=== PATIENT | female | born 1950 | race Caucasian/White ===

== ENCOUNTER 2021-07-22 08:10 | Outpatient (REF) | payer BC, SELFPAY ==
[2021-07-22 11:52] LABS: Appearance Urine CLEAR; Color Urine YELLOW; Glucose Urine UA NEG (NEG); Leukocyte Esterase Urine NEG (NEG); Nitrite Urine NEG (NEG); Urine Blood NEG (NEG); Urine Ketones NEG (NEG); Urine Protein NEG (NEG-TRACE)
[2021-07-22 12:15] LABS: TSH reflex Free T4 2.13 uIU/mL (0.32-4.0); Vitamin D 25-OH Total 43.7 ng/mL (>30)
[2021-07-22 12:29] LABS: Alanine Aminotransferase 18 U/L (0-31); Albumin Level 4.5 g/dL (3.5-5.0); Alkaline Phosphatase 57 U/L (39-117); Anion Gap 13 (12-20); Aspartate Amino Transferase 21 U/L (5-31); Bilirubin Total 0.5 mg/dL (0.0-1.0); Blood Urea Nitrogen 15 mg/dL (9-16); Calcium 10.6 mg/dL (8.4-10.2); Carbon Dioxide 27 mmol/L (22-29); Chloride 106 mmol/L (96-108); Cholesterol 267 mg/dL; Estimated Glomerular Filt Rate > 60; Glucose Fasting 94 mg/dL (60-99); HDL Cholesterol 61 mg/dL; LDL Cholesterol Calculated 182 mg/dl; Potassium 5.4 mmol/L (3.3-5.1); Sodium 141 mmol/L (135-145); Total Protein 7.8 g/dL (6.5-8.0); Triglycerides 123 mg/dL
== END 2021-07-22 08:11 | disposition home or self-care (01) ==
LOC: HO.HMGCLDS 08:10
PROVIDERS: PCP Nurse Practitioner Family; Visit Provider Nurse Practitioner Family
DX: M81.0 Age-related osteoporosis without current pathological fracture (principal)
CPT/HCPCS: 36415; 80053; 80061; 81003; 82306; 84443

== ENCOUNTER 2021-07-24 08:53 | Outpatient (REF) | payer BC, SELFPAY ==
--- NOTE | ~2021-07-24 | MM_ITS ---
EXAMINATION: BONE DENSITOMETRY CLINICAL INDICATION: Age-related osteoporosis without current pathological fracture. COMPARISON: This is the patient's baseline examination. TECHNIQUE: Using a OpVista DXA System (software version: 13.1) manufactured by [employer], dual-energy x-ray absorptiometry was performed of the lumbar spine and left hip. The images are of good technical quality. Summary results are attached. FINDINGS: AP SPINE L1-L3 (excluding L4): The data of L1-L4 has been changed to exclude the L4 vertebral body, because degenerative sclerosis at this level may cause overestimation of lumbar spine density. BMD 1.109 g/cm2, Z-score 1.0, T-score -0.5, normal. LEFT FEMUR, NECK: BMD 0.729 g/cm2, Z-score -0.5, T-score -2.2, osteopenia. LEFT FEMUR, TOTAL: BMD 0.803 g/cm2, Z-score -0.2, T-score -1.6, osteopenia. IDENTIFIED RISK FACTORS: Early menopause, secondary osteoporosis, osteoporosis, history of fracture (adult). HISTORY OF FRACTURE: Other. MEDICATIONS: Vitamin D, bisphosphonate. MM/XR DEXA axial skeleton IMPRESSION: 1. DIAGNOSIS: Osteopenia based on the lowest T-score value of -2.2 in the femoral neck applying World Health Organization criteria. 2. 10-YEAR FRACTURE RISK PREDICTION, FRAX: Major osteoporotic fracture (clinical spine, forearm, hip or shoulder) 20.5%. Hip fracture 4.9%. 3. Treatment Recommendations: NOF guidelines recommend consideration for treatment in postmenopausal women and men age 50 and older presenting with the following: -A hip or vertebral (clinical or morphometric) fracture. -T-score less than or equal to -2.5 at the femoral neck or spine after appropriate evaluation to exclude secondary causes. -Low bone mass at the hip or spine and a 10-year fracture probability by FRAX of greater than or equal to 3% for hip fracture or greater than or equal to 20% for major osteoporotic fracture based on the [place] adapted WHO algorithm. 4. Other Recommendations: All treatment decisions require clinical judgment and consideration of individual patient factors, including patient preferences, comorbidities, previous drug use, risk factors not captured in the FRAX model (e.g. frailty, falls, vitamin D deficiency, increased bone turnover, interval significant decline in bone density) and possible under or overestimation of fracture risk by FRAX. Additional medical evaluation for secondary cause of low bone mineral density may be appropriate. FUTURE SCAN RECOMMENDATION: People with diagnosed cases of osteoporosis or at high risk for fracture should have regular bone mineral density tests. For patients eligible for Medicare, routine testing is allowed once every 2 years. The testing frequency can be increased to one year for patients who have rapidly progressing disease, those who are receiving or discontinuing medical therapy to restore bone mass, or have additional risk factors.
== END 2021-07-24 08:54 | disposition home or self-care (01) ==
LOC: HO.MAMMO 08:53
PROVIDERS: Visit Provider Nurse Practitioner Family
DX: Z13.820 Encounter for screening for osteoporosis (principal); M81.0 Age-related osteoporosis without current pathological fracture; Z78.0 Asymptomatic menopausal state
CPT/HCPCS: 77080

== ENCOUNTER 2021-07-29 12:51 | Outpatient (REF) | payer BC, SELFPAY ==
[2021-07-29 14:09] LABS: Alanine Aminotransferase 21 U/L (0-31); Albumin Level 4.3 g/dL (3.5-5.0); Alkaline Phosphatase 61 U/L (39-117); Anion Gap 11 (12-20); Aspartate Amino Transferase 22 U/L (5-31); Bilirubin Total 0.3 mg/dL (0.0-1.0); Blood Urea Nitrogen 13 mg/dL (9-16); Calcium 10.1 mg/dL (8.4-10.2); Carbon Dioxide 28 mmol/L (22-29); Chloride 106 mmol/L (96-108); Cholesterol 249 mg/dL; Estimated Glomerular Filt Rate > 60; Glucose Fasting 105 mg/dL (60-99); HDL Cholesterol 56 mg/dL; LDL Cholesterol Calculated 168 mg/dl; Potassium 4.9 mmol/L (3.3-5.1); Sodium 140 mmol/L (135-145); Total Protein 7.6 g/dL (6.5-8.0); Triglycerides 129 mg/dL
== END 2021-07-29 12:52 | disposition home or self-care (01) ==
LOC: HO.HMGCLDS 12:51
PROVIDERS: Visit Provider Nurse Practitioner Family
DX: E78.5 Hyperlipidemia, unspecified (principal)
CPT/HCPCS: 36415; 80053; 80061

== ENCOUNTER 2021-09-23 07:49 | Outpatient (REF) | payer BC, SELFPAY ==
[2021-09-23 12:07] LABS: Alanine Aminotransferase 14 U/L (0-31); Albumin Level 4.4 g/dL (3.5-5.0); Alkaline Phosphatase 58 U/L (39-117); Anion Gap 12 (12-20); Aspartate Amino Transferase 20 U/L (5-31); Bilirubin Total 0.5 mg/dL (0.0-1.0); Blood Urea Nitrogen 14 mg/dL (9-16); Calcium 9.5 mg/dL (8.4-10.2); Carbon Dioxide 24 mmol/L (22-29); Chloride 108 mmol/L (96-108); Cholesterol 158 mg/dL; Estimated Glomerular Filt Rate > 60; Glucose Random 105 mg/dL (60-115); HDL Cholesterol 62 mg/dL; LDL Cholesterol Calculated 76 mg/dl; Potassium 4.2 mmol/L (3.3-5.1); Sodium 140 mmol/L (135-145); Total Protein 7.5 g/dL (6.5-8.0); Triglycerides 104 mg/dL
== END 2021-09-23 07:50 | disposition home or self-care (01) ==
LOC: HO.HMGCLDS 07:49
PROVIDERS: PCP Nurse Practitioner Family; Visit Provider Nurse Practitioner Family
DX: E78.5 Hyperlipidemia, unspecified (principal)
CPT/HCPCS: 36415; 80053; 80061

== ENCOUNTER 2021-11-28 13:13 | Outpatient (REF) | payer BC, SELFPAY ==
[2021-11-28 13:22] LABS: Appearance Urine Cloudy; Color Urine Dark Yellow; Glucose Urine UA Negative (Negative); Leukocyte Esterase Urine Large (3+) (Negative); Nitrite Urine Positive (Negative); PH 5.5 (5.0-9.0); Specific Gravity - Urine <= 1.005 (1.005-1.025); UMIC TRIGGER UACC YES; Urine Blood Large (3+) (Negative); Urine Ketones Negative (Negative); Urine Protein 30 (1+) mg/dL (Neg-Trace)
[2021-11-28 14:03] LABS: Hyaline Casts Urine 0-2 /LPF (0-2); Squamous Epithelial Cell Urine 0-2 /HPF (0-2); UACC Culture Trigger YES; WBC Urine >50 /HPF (0-5)
[2021-11-28 14:04] LABS: Bacteria Urine Trace (None Seen)
== END 2021-11-28 13:14 | disposition home or self-care (01) ==
LOC: HO.LNP 13:13
PROVIDERS: Visit Provider Physician Assistant Medical
DX: R30.0 Dysuria (principal)
CPT/HCPCS: 81001; 87086

== ENCOUNTER 2021-12-31 12:44 | Outpatient (REF) | payer BC, SELFPAY ==
[2021-12-31 13:50] LABS: MANUAL DIFF FLAG NO
[2021-12-31 13:58] LABS: Basophils Absolute Auto 0.1 X10*3/uL (0.0-0.2); Basophils Percent Auto 1.5 % (0-2); Eosinophils Absolute Auto 0.3 X10*3/uL (0.0-0.4); Eosinophils Percent Auto 4.1 % (0-4); Hematocrit 41.3 % (37.0-47.0); Hemoglobin 13.7 g/dl (12.0-16.0); Imm Gran Abs Auto 0.03 X10*3/uL (0.00-0.03); Imm Gran Pct Auto 0.4 % (0.0-0.4); Lymphocytes Absolute Auto 2.1 X10*3/uL (1.2-4.9); Lymphocytes Percent Auto 26.6 % (20-40); Mean Corpuscular HGB Conc 33.2 g/dl (31.0-35.0); Mean Corpuscular Hemoglobin 30.5 pg (27.0-33.0); Mean Platelet Volume 10.6 fL (9.4-12.3); Monocytes Absolute Auto 0.5 X10*3/uL (0.1-1.2); Monocytes Percent Auto 6.4 % (2-11); Neutrophils Absolute Auto 4.8 x10*3/uL (2.0-8.3); Platelet Count 287 X10*3/uL (160-400); Red Blood Count 4.49 X10*6/uL (4.20-5.50); Red Cell Distribution Width 13.1 % (11.0-16.0); White Blood Count 7.9 X10*3/uL (4.8-10.8)
[2021-12-31 14:04] LABS: Appearance Urine Clear; Color Urine Yellow; Glucose Urine UA Negative (Negative); Leukocyte Esterase Urine Trace (Negative); Nitrite Urine Negative (Negative); PH 5.5 (5.0-9.0); Specific Gravity - Urine <= 1.005 (1.005-1.025); UMIC TRIGGER UACC YES; Urine Blood Negative (Negative); Urine Ketones Negative (Negative); Urine Protein Negative (Neg-Trace)
[2021-12-31 14:14] LABS: Alanine Aminotransferase 24 U/L (0-31); Albumin Level 4.6 g/dL (3.5-5.0); Alkaline Phosphatase 68 U/L (39-117); Anion Gap 15 (12-20); Aspartate Amino Transferase 25 U/L (5-31); Blood Urea Nitrogen 11 mg/dL (9-16); Calcium 10.3 mg/dL (8.4-10.2); Carbon Dioxide 27 mmol/L (22-29); Chloride 106 mmol/L (96-108); Estimated Glomerular Filt Rate > 60; Glucose Random 96 mg/dL (60-115); Sodium 143 mmol/L (135-145); Total Protein 7.9 g/dL (6.5-8.0)
[2021-12-31 14:29] LABS: Bilirubin Total 0.5 mg/dL (0.0-1.0)
[2021-12-31 14:38] LABS: Bacteria Urine None Seen (None Seen); Hyaline Casts Urine 0-2 /LPF (0-2); RBC Urine 0-2 /HPF (0-2); Squamous Epithelial Cell Urine 0-2 /HPF (0-2); WBC Urine 0-5 /HPF (0-5)
== END 2021-12-31 12:45 | disposition home or self-care (01) ==
LOC: HO.HMGCLDS 12:44
PROVIDERS: PCP Nurse Practitioner Family; Visit Provider Nurse Practitioner Family
DX: R00.2 Palpitations (principal); D35.00 Benign neoplasm of unspecified adrenal gland
CPT/HCPCS: 36415; 80053; 81001; 81003; 84443; 85025

== ENCOUNTER → 2022-01-28 09:13 | Outpatient (REF) | payer BC, SELFPAY ==
--- NOTE | 2022-01-28 09:17 | HM_ITS ---
Conclusion: 1. Patient was monitored for total period of 3 days 2. Baseline was normal sinus rhythm with average heart rate of 85 beats per minute 3. No significant pauses or bradycardia noted 4. Occasional PVCs noted 5. No patient reported events MTDD
--- NOTE | 2022-01-28 09:17 | CA_ITS ---
Transthoracic Echocardiogram Patient (Last, First, Middle): Rocio Roland A Gender: Female Date of : 1950 Age: 71 Procedure Date: 01/28/2022 Procedure Type: Transthoracic Echocardiogram Location: OP Height: 147.32 cm Weight: 65.77 kg BSA: 1.59 m2 Heart Rate: bpm BP: 152 / 86 mmHg Licensed Dispensing Optician: WINSTON Referring MD: Levar Pritchard [facility]- Cotton Ginner Helper: Humble Abreu MD Symptoms: R00.2 - Palpitations Study Quality: Technically Difficult ECG Rhythm: Sinus Conclusions: - 1. Normal LV systolic function with grade 1 diastolic dysfunction 2. Normal cardiac valvular Doppler 3. No gross pericardial effusion Findings Left Ventricle Normal left ventricular size, thickness, and systolic function. The visually estimated ejection fraction is between 60-65%. Regional wall motion abnormalities can not be excluded due to suboptimal endocardial definition. Spectral Doppler is indicative of an impaired relaxation filling pattern. E/E prime ratio is <8, consistent with normal filling pressures. Evidence suggests grade I (mild) diastolic dysfunction. Peak GLS is -18.3%, within normal limits. Right Ventricle Normal right ventricular cavity size. Atria The left atrium is normal in size. There is no evidence of interatrial shunt. The right atrium was not well visualized. Aortic Valve The aortic valve structure and function is likely normal. There is no aortic valve stenosis. There is no aortic valve regurgitation. Mitral Valve Normal mitral valve structure and function. There is trace mitral valve regurgitation. There is no mitral valve stenosis. Pulmonic Valve The pulmonic valve was not well visualized. Tricuspid Valve Likely normal tricuspid valve structure and function. Tricuspid regurgitation envelope is inadequate for calculation of right ventricular systolic pressure. Normal right atrial pressure. Great Vessels All visible segments of the aorta are normal in size. The pulmonary artery was not well visualized. Small plaque is seen in the sino tubular ridge. Venous The inferior vena cava is normal in size and collapses greater than 50% with inspiration. Pericardium/Pleural There is no evidence of pericardial effusion. Measurements 2D Linear Measurements IVSd: 0.91 0.6-0.9/0.6-1.0 cm LVIDd: 4.01 3.9-5.3/4.2-5.9 cm LVIDd Index: 2.52 2.4-3.2/2.2-3.1 cm/m2 LVIDs: 2.19 2.0-3.6 cm LVPWd: 1.01 0.7-1.1 cm LA Diam: 3.10 2.7-3.8/3.0-4.0 cm LAIDs Index: 1.95 1.5-2.3 cm/m2 LV Mass: 149.59 67-162/88-224 g LV Mass Index: 94.08 43-95/49-115 g/m2 LVOT Diam: 2.00 3.0+(-)1.3 cm 2D Systolic Function EF 4C: 66.70 >55% EF 2C: 63.80 >55% EF BiP: 64.30 >55% Mitral Valve MV Pk E: 0.61 MV PK A: 0.70 MV Decel Time: 187.00 E/A: 0.90 E'Lateral: 7.94 E'Medial: 6.42 E/E' Med: 9.50 E/E' Lat: 7.70 PHT: 55.00 MVA PHT: 4.00 Decel Freestone: 3.27 Aortic Valve AoV Pk Haim: 1.07 AoV Mn Haim: 0.80 AoV VTI: 0.26 AoV Pk Grad: 5.00 Aov Mn Grad: 3.00 MARANDA Cont.VTI: 2.08 LVOT LVOT Pk Haim: 0.74 LVOT Mn Haim: 0.49 LVOT VTI: 0.17 LVOT Pk Grad: 2.00 LVOT Mn Grad: 1.00 LVOT Diam: 2.00 LVOT Area: 3.14 Diastolic Function MV Pk E: 0.61 MV Pk A: 0.70 E/A: 0.90 E'Medial: 6.42 E/E' Med: 9.50 E' Laterial: 7.94 E/E' Lat: 7.70 Right Ventricle TAPSE (mm): 20.80 TVS' Haim: 9.36 Tricuspid Valve RA Press: 3.00 Great Vessels Aorta Sinus of Valsalva: 3.16 2.0-3.[address] Ridge: 2.56 1.7-3.4 cm Ao Asc: 3.40 2.1-3.4 cm Updated in Other Vendor System with Status of Final Humble Abreu MD electronically signed on 01/29/2022 4:44:33 PM with status of Final
== END ==
LOC: HO.CARD 09:13
PROVIDERS: PCP Nurse Practitioner Family; Visit Provider Nurse Practitioner Family
DX: R00.2 Palpitations (principal)
CPT/HCPCS: 93242; 93306; 93356

== ENCOUNTER 2022-02-12 08:20 | Outpatient (REF) | payer BC, SELFPAY ==
[2022-02-12 11:58] LABS: Blood Urea Nitrogen 17 mg/dL (9-16); Estimated Glomerular Filt Rate > 60
== END 2022-02-12 08:21 | disposition home or self-care (01) ==
LOC: HO.HMGCLDS 08:20
PROVIDERS: PCP Nurse Practitioner Family; Visit Provider Nurse Practitioner Family
DX: D35.00 Benign neoplasm of unspecified adrenal gland (principal)
CPT/HCPCS: 36415; 82565; 84520

== ENCOUNTER 2022-02-17 08:37 | Outpatient (REF) | payer BC, SELFPAY ==
--- NOTE | ~2022-02-17 | CT_ITS ---
EXAMINATION: CT ABDOMEN WITHOUT AND WITH CONTRAST CLINICAL INFORMATION: Benign neoplasm of adrenal gland. COMPARISON: None TECHNIQUE: Contiguous axial thin section helical images of the abdomen were performed before and after the administration of oral contrast and 85 mL of Omnipaque 350 intravenous contrast. The data set was reformatted in the coronal and sagittal planes and reviewed on an independent workstation. This CT examination was performed using dose optimization techniques as appropriate, variously including the following: *Automated exposure control *Adjustment of mA and/or kV according to patient size (this includes techniques or standardized protocols for targeted exams where dose is matched to indication/reason for exam; i.e. extremities or head) *Use of iterative reconstruction technique DLP: 306 mGy-cm FINDINGS: LUNG BASES: There is focal bronchiectasis in both lung bases with atelectasis or scarring. Heart size is normal. LIVER, GALLBLADDER, AND BILIARY TREE: The liver is normal size, contour and density. No focal lesion or intrahepatic ductal dilatation seen. The liver measures 13.5 cm in length. PANCREAS: The pancreas is normal size and density. The peripancreatic fat borders are preserved. No focal lesion seen. SPLEEN: The spleen is normal size and density. Small accessory splenule is seen along the anterior margin of the spleen. ADRENAL GLANDS AND KIDNEYS: The right adrenal gland is normal. There is a small nodule in the left adrenal gland measuring 2.5 x 2.1 x 2.4 cm. On precontrast, it measures 4.4 HU. Postcontrast, it measures 68 HU and on delayed 10-minute washout image, it measures 29 HU. The absolute washout is 61% and the relative washout is 57.4% consistent with an adenoma. There is mild cortical thinning upper pole right kidney. Otherwise, both kidneys are normal size, shape and position. No enhancing renal mass or radiopaque calculi seen. There is no hydronephrosis. BOWEL LOOPS: There is scattered stool and gas seen throughout the colon without distention. The small bowel loops are normal caliber. LYMPH NODES: No abnormal size lymph nodes seen. VASCULAR: Abdominal aorta is normal caliber with mild atherosclerotic calcification. BONES: There are degenerative disc changes and spondylosis at the L4-L5 disc level. No aggressive lytic or sclerotic process seen. CT/CT abdomen wo/w IV con IMPRESSION: Left adrenal benign adenoma measuring 2.5 cm. Mild cortical thinning upper pole right kidney, likely scar. Fleischner guidelines were followed.
[2022-02-17] MEDS: iohexoL 350 MG/ML 100 ML INFUS..BTL IV (09:34)
== END 2022-02-17 08:38 | disposition home or self-care (01) ==
LOC: HO.CT 08:37
PROVIDERS: PCP Nurse Practitioner Family; Visit Provider Nurse Practitioner Family
DX: D35.00 Benign neoplasm of unspecified adrenal gland (principal)
CPT/HCPCS: 74170; Q9967

== ENCOUNTER 2022-03-12 08:54 | Outpatient (REF) | payer BC, SELFPAY ==
--- NOTE | ~2022-03-12 | MM_ITS ---
EXAMINATION: MM SCREENING DIGITAL BREAST TOMOSYNTHESIS, BILATERAL CLINICAL INFORMATION: Screening. Asymptomatic. The lifetime risk of breast cancer based on the Tyrer-Cuzick Model is 2%. COMPARISON: Mammography: 03/05/2021, 03/05/2020, 02/22/2019 ([facility]) TECHNIQUE: Digital breast tomosynthesis is performed in both the craniocaudal and mediolateral oblique views along with computer-aided detection (CAD). Synthesized 2D images are generated from the tomosynthesis. FINDINGS: The breasts are heterogeneously dense, which may obscure small masses (ACR BI-RADS breast composition Category c). There are no significant masses, abnormal calcifications, or other abnormalities. Breast tissue composition borders on average fibroglandular. There is no developing density or architectural abnormality. No significant changes from outside studies. MM/MM tomosynthesis screening BI IMPRESSION: No mammographic evidence of malignancy. ASSESSMENT: BI-RADS 1: Negative RECOMMENDATION: Routine annual mammography screening. This patient's information was entered into a reminder system with a target due date for their next mammogram.
== END 2022-03-12 08:55 | disposition home or self-care (01) ==
LOC: HO.MAMMO 08:54
PROVIDERS: PCP Nurse Practitioner Family; Visit Provider Nurse Practitioner Family
DX: Z12.31 Encounter for screening mammogram for malignant neoplasm of breast (principal)
CPT/HCPCS: 77063; 77067

== ENCOUNTER → 2022-06-02 15:30 | Outpatient (BNVA) | payer BC, SELFPAY | PROVIDERS: PCP Nurse Practitioner Family; Visit Provider Internal Medicine Endocrinology, Diabetes & Metabolism | DX: Z13.89 Encounter for screening for other disorder (principal) ==

== ENCOUNTER 2022-08-18 07:48 | Outpatient (REF) | payer MEDICARE, SELFPAY ==
[2022-08-18 11:11] LABS: MANUAL DIFF FLAG NO
[2022-08-18 11:20] LABS: Basophils Absolute Auto 0.1 X10*3/uL (0.0-0.2); Basophils Percent Auto 0.6 % (0-2); Hematocrit 43.6 % (37.0-47.0); Hemoglobin 14.2 g/dl (12.0-16.0); Imm Gran Abs Auto 0.02 X10*3/uL (0.00-0.03); Imm Gran Pct Auto 0.2 % (0.0-0.4); Lymphocytes Absolute Auto 1.2 X10*3/uL (1.2-4.9); Lymphocytes Percent Auto 14.4 % (20-40); Mean Corpuscular HGB Conc 32.6 g/dl (31.0-35.0); Mean Corpuscular Hemoglobin 29.8 pg (27.0-33.0); Mean Corpuscular Volume 91.6 fL (80.0-98.0); Mean Platelet Volume 11.1 fL (9.4-12.3); Monocytes Absolute Auto 0.2 X10*3/uL (0.1-1.2); Monocytes Percent Auto 2.6 % (2-11); Neutrophils Absolute Auto 6.6 x10*3/uL (2.0-8.3); Neutrophils Percent Auto 82.2 % (45-73); Platelet Count 253 X10*3/uL (160-400); Red Blood Count 4.76 X10*6/uL (4.20-5.50); Red Cell Distribution Width 12.8 % (11.0-16.0)
[2022-08-18 11:21] LABS: Appearance Urine Clear; Color Urine Yellow; Glucose Urine UA Negative (Negative); Leukocyte Esterase Urine Trace (Negative); Nitrite Urine Negative (Negative); Specific Gravity - Urine 1.015 (1.005-1.025); UMIC TRIGGER UACC YES; Urine Blood Negative (Negative); Urine Ketones Negative (Negative); Urine Protein Negative (Neg-Trace)
[2022-08-18 11:29] LABS: Bacteria Urine None Seen (None Seen); Hyaline Casts Urine 0-2 /LPF (0-2); RBC Urine 0-2 /HPF (0-2); Squamous Epithelial Cell Urine 0-2 /HPF (0-2); WBC Urine 0-5 /HPF (0-5)
[2022-08-18 11:35] LABS: Anion Gap 11 (12-20); Blood Urea Nitrogen 18 mg/dL (9-16); Calcium 10.7 mg/dL (8.4-10.2); Carbon Dioxide 27 mmol/L (22-29); Chloride 108 mmol/L (96-108); Estimated Glomerular Filt Rate > 60; Potassium 5.2 mmol/L (3.3-5.1); Sodium 141 mmol/L (135-145)
[2022-08-18 11:59] LABS: Alanine Aminotransferase 18 U/L (0-31); Albumin Level 4.6 g/dL (3.5-5.0); Alkaline Phosphatase 57 U/L (39-117); Anion Gap 11 (12-20); Aspartate Amino Transferase 20 U/L (5-31); Bilirubin Total 0.7 mg/dL (0.0-1.0); Blood Urea Nitrogen 17 mg/dL (9-16); Calcium 11.1 mg/dL (8.4-10.2); Carbon Dioxide 27 mmol/L (22-29); Chloride 108 mmol/L (96-108); Cholesterol 164 mg/dL; Estimated Glomerular Filt Rate > 60; Glucose Fasting 109 mg/dL (60-99); HDL Cholesterol 65 mg/dL; LDL Cholesterol Calculated 86 mg/dl; Sodium 141 mmol/L (135-145); Triglycerides 67 mg/dL
[2022-08-18 12:01] LABS: TSH reflex Free T4 0.93 uIU/mL (0.32-4.0)
[2022-08-18 12:31] LABS: Cortisol Random 1.1 ug/dL
[2022-08-20 11:03] LABS: DHEA Sulfate 3 mcg/dL (4-157)
[2022-08-31 20:04] LABS: Dexamethasone 568 ng/dL
[2022-09-02 17:33] LABS: Renin 3.31 ng/mL/h (0.25-5.82)
== END 2022-08-18 07:49 | disposition home or self-care (01) ==
LOC: HO.HMGCLDS 07:48
PROVIDERS: Absent Provider Internal Medicine Endocrinology, Diabetes & Metabolism; PCP Nurse Practitioner Family; Referring Provider Internal Medicine Nephrology; Visit Provider Nurse Practitioner Family
DX: D35.00 Benign neoplasm of unspecified adrenal gland (principal); I10 Essential (primary) hypertension; Z79.899 Other long term (current) drug therapy
CPT/HCPCS: 36415; 80051; 80053; 80061; 80299; 81001; 82088; 82310; 82533; 82565; 82627; 83835; 84244; 84443; 84520; 85025

== ENCOUNTER 2022-08-19 07:58 | Outpatient (REF) | payer MEDICARE, SELFPAY ==
[2022-08-19 11:39] LABS: Appearance Urine Clear; Color Urine Yellow; Glucose Urine UA Negative (Negative); Leukocyte Esterase Urine Negative (Negative); Nitrite Urine Negative (Negative); PH 5.5 (5.0-9.0); Specific Gravity - Urine <= 1.005 (1.005-1.025); Urine Blood Negative (Negative); Urine Ketones Negative (Negative); Urine Protein Negative (Neg-Trace)
[2022-08-19 12:14] LABS: Anion Gap 12 (12-20); Carbon Dioxide 26 mmol/L (22-29); Chloride 106 mmol/L (96-108); Potassium 3.5 mmol/L (3.3-5.1); Sodium 140 mmol/L (135-145)
[2022-08-19 12:37] LABS: Vitamin D 25-OH Total 51.3 ng/mL (>30)
[2022-08-23 14:23] LABS: PTHI 45 pg/mL (16-77)
[2022-08-24 10:44] LABS: Calcium, Ionized 5.1 mg/dL (4.7-5.5)
== END 2022-08-19 07:59 | disposition home or self-care (01) ==
LOC: HO.HMGCLDS 07:58
PROVIDERS: PCP Nurse Practitioner Family; Visit Provider Nurse Practitioner Family
DX: E83.52 Hypercalcemia (principal); I10 Essential (primary) hypertension; E87.5 Hyperkalemia
CPT/HCPCS: 36415; 80051; 81003; 82306; 82330; 83970

== ENCOUNTER 2022-08-23 07:04 | Outpatient (REF) | payer MEDICARE, SELFPAY ==
[2022-08-28 12:07] LABS: Metanephrine, Free <25 pg/mL (<=57); Normetanephrines, Free 168 pg/mL (<=148); Total Metanephrine, Free 168 pg/mL (<=205)
== END 2022-08-23 07:05 | disposition home or self-care (01) ==
LOC: HO.LAB 07:04
PROVIDERS: PCP Nurse Practitioner Family; Visit Provider Internal Medicine Endocrinology, Diabetes & Metabolism
DX: D35.00 Benign neoplasm of unspecified adrenal gland (principal)
CPT/HCPCS: 36415; 83835

== ENCOUNTER 2022-09-07 08:01 | Outpatient (REF) | payer MEDICARE, SELFPAY ==
[2022-09-07 12:00] LABS: Total Volume 24 Hour Urine 1825 mL
[2022-09-07 12:41] LABS: Creatinine, 24Hr Urine 0.7 G/Day (1.0-2.0); Creatinine, mg/dL 39.16
[2022-09-13 11:30] LABS: Metanephrine, Free 24U 38 mcg/24 h (90-315); Normetanephrine, Free 24U 254 mcg/24 h (122-676); Total Metanephrine, Free 24U 292 mcg/24 h (224-832); Total Volume 24U 1825 mL
== END 2022-09-07 08:02 | disposition home or self-care (01) ==
LOC: HO.HMGCLNP 08:01
PROVIDERS: PCP Nurse Practitioner Family; Visit Provider Internal Medicine Endocrinology, Diabetes & Metabolism
DX: D35.00 Benign neoplasm of unspecified adrenal gland (principal)
CPT/HCPCS: 82570; 83835

== ENCOUNTER 2022-10-05 08:50 | Outpatient (AMB) | payer BC, SELFPAY ==
[2022-10-05 09:02] VITALS: BP 128/80; PULSE 88; O2SAT 97; BMI 29.8
--- NOTE | 2022-10-05 09:02 | A.OFFVIS_ITS ---
Intake Vital Signs 10/05/22 09:02 Height 4 ft 11 in Weight 147 lb 11.355 oz BMI 29.8 BP 128/80 Blood Pressure Location Lt brachial Position Sitting Pulse 88 Pulse Source Pulse Oximeter Pulse Oximetry (%) 97 Oxygen Delivery Method Room Air Intake Visit Reasons: F/Up Adrenal Adenoma Intake Note: Pt presents to the office today for a follow up adrenal adenoma. Allergies ciprofloxacin [From CIPRO] Allergy (Intermediate, Verified 10/05/22 09:04) JOINT PAIN codeine [CODEINE] Allergy (Mild, Verified 10/05/22 09:04) LOOPY Penicillins Allergy (Mild, Verified 10/05/22 09:04) RASH penicillin G Allergy (Unknown, Verified 10/05/22 09:04) Unknown Medication List - Last Reconciled 10/05/22 by Pete Chandler MD cholecalciferol (vitamin D3) 50 mcg PO DAILY 90 days famotidine (Pepcid) 40 mg PO DAILY fluticasone propionate 50 mcg/actuation (Flonase Allergy Relief) 1 spray intranasal DAILY PRN ibandronate 150 mg PO .Q month 90 days loratadine (Claritin) 10 mg PO DAILY losartan 25 mg PO DAILY rosuvastatin 10 mg PO DAILY 90 days HPI HPI Comments History of Present Illness Details 72 YO F with who is seen in consultation at the request of PCP for adrenal incidentaloma. Had CT abdomen/pelvis 02/17/22 for which revealed ADRENAL GLANDS AND KIDNEYS: The right adrenal gland is normal. There is a small nodule in the left adrenal gland measuring 2.5 x 2.1 x 2.4 cm. On precontrast, it measures 4.4 HU. Postcontrast, it measures 68 HU and on delayed 10-minute washout image, it measures 29 HU. The absolute washout is 61% and the relative washout is 57.4% consistent with an adenoma. There is mild cortical thinning upper pole right kidney. Otherwise, both kidneys are normal size, shape and position. No enhancing renal mass or radiopaque calculi seen. There is no hydronephrosis. BOWEL LOOPS: There is scattered stool and gas seen throughout the colon without distention. The small bowel loops are normal caliber.? LYMPH NODES: No abnormal size lymph nodes seen. VASCULAR: Abdominal aorta is normal caliber with mild atherosclerotic calcification. BONES: There are degenerative disc changes and spondylosis at the L4-L5 disc level. No aggressive lytic or sclerotic process seen.? CT/CT abdomen wo/w IV con IMPRESSION: Left adrenal benign adenoma measuring 2.5 cm.. Denies history of spells with headache, flushing, diaphoresis, abdominal pain or diarrhea. Denies any weight gain, frequent infections, easy bruisability, development of violaceous striae. History of HTN, controlled on 1 agents. No history of anticoagulant use. Denies any weight loss, orthostatic symptoms, hypoglycemia. No history of malignancy or TB. Imaging: Labs: Workup showed that the adrenal mass was non secretory [facility] History (Updated 08/18/22 @ 13:44 [facility] Adrenal adenoma Surgical History (Updated 06/02/22 @ 15:37 by DARION Thurston) Hx of right knee surgery Social History Housing: House Patient Tobacco Use Status: Never used Tobacco e-Cigarette/Vaping Use: Never Used Second Hand Smoke Exposure: No service: No Current occupational status: retired Current occupational exposures/hazards: No Cognitive needs: No Hearing needs: No Vision needs: No Assessment & Plan Assessment & Plan (1) Adrenal adenoma: Code(s): D35.00 - Benign neoplasm of unspecified adrenal gland Plan: This is a 72-year-old white female with incidentally discovered left adrenal mass with CT characteristics to just a benign adenoma. It appears to be non secretory Plan is to continue to follow the patient. Coding Level of Care Code Est Pt Level 3 (75276) Diagnoses Adrenal adenoma D35.00
== END 2022-10-05 10:31 | disposition home or self-care (01) ==
PROVIDERS: PCP Nurse Practitioner Family; Visit Provider Internal Medicine Endocrinology, Diabetes & Metabolism
DX: D35.00 Benign neoplasm of unspecified adrenal gland (principal)
CPT/HCPCS: 99213

== ENCOUNTER → 2022-10-05 08:50 | Outpatient (BNVA) | payer BC, SELFPAY | PROVIDERS: Visit Provider Internal Medicine Endocrinology, Diabetes & Metabolism ==

== ENCOUNTER 2022-11-16 08:11 | Outpatient (AMB) | payer BC, SELFPAY ==
[2022-11-16 08:18] VITALS: BP 130/86; PULSE 94; O2SAT 98; BMI 29.5
--- NOTE | 2022-11-16 08:18 | A.OFFPC_ITS ---
Vital Signs 11/16/22 08:18 Height 4 ft 11 in Weight 146 lb 2 oz BMI 29.5 BP 130/86 Blood Pressure Location Rt brachial Position Sitting Pulse 94 Pulse Source Pulse Oximeter Pulse Oximetry (%) 98 Oxygen Delivery Method Room Air Intake Visit Reasons: 6m follow up Allergies ciprofloxacin [From CIPRO] Allergy (Intermediate, Verified 11/16/22 08:30) JOINT PAIN codeine [CODEINE] Allergy (Mild, Verified 11/16/22 08:30) LOOPY Penicillins Allergy (Mild, Verified 11/16/22 08:30) RASH penicillin G Allergy (Unknown, Verified 11/16/22 08:30) Unknown Medication List - Last Reconciled 11/16/22 by Levar Pritchard, PRINCIPAL DATABASE DEVELOPER- cholecalciferol (vitamin D3) 50 mcg PO DAILY 90 days famotidine (Pepcid) 40 mg PO DAILY fluticasone propionate 50 mcg/actuation (Flonase Allergy Relief) 1 spray intranasal DAILY PRN ibandronate 150 mg PO .Q month 90 days loratadine (Claritin) 10 mg PO DAILY losartan 25 mg PO DAILY rosuvastatin 10 mg PO DAILY 90 days Tobacco use date assessed: 11/16/22 Fall risk assessment: No Falls in past year Last assessed Fall Risk: 11/16/22 Dental Screening Dental Screen Date: 11/16/22 Did you have a dental visit in the last 12 months?: Yes Did you have a dental problem in the last 6 months where you did not have access to dental care?: No Was dental information given to patient?: Patient has dentist HPI 6m follow up HPI Details HTN: Blood pressure is stable, managed with losartan 25mg. Pt reports that her blood pressure at home is typically in the 110s/70s. Denies chest pain, shortness of breath, headache, dizziness, and blurred vision. Pt is following up with endo due to adrenal adenoma. She reports that she is walking 2-3 times a week. [facility] Medical History Adrenal adenoma Surgical History Hx of right knee surgery Social History Housing: House Patient Tobacco Use Status: Never used Tobacco e-Cigarette/Vaping Use: Never Used Second Hand Smoke Exposure: No service: No Current occupational status: retired Current occupational exposures/hazards: No Cognitive needs: No Hearing needs: No Vision needs: No Questionnaire Thrive Questionnaire Date Thrive assessed: 07/15/21 JAHAIRA-7 AMB Questionnaire JAHAIRA-7 Date JAHAIRA - 7 assessed: 07/15/21 Source: Developed by Drs. Pete Gomez, Yolette Beltran, Jah Tapia and colleagues, with an educational pilar from [employer]. Review of Systems Const Reports as per HPI Physical exam (Primary Care) Vital Signs: Last Vital Signs Pulse 94 11/16/22 08:18 BP 130/86 11/16/22 08:18 Pulse Ox 98 11/16/22 08:18 Oxygen Delivery Method Room Air 11/16/22 08:18 BMI result Body Mass Index 29.5 Tobacco/Smoking Status: Tobacco use Status Tobacco use date assessed 11/16/22 11/16/22 08:23 Patient Tobacco Use Status Never used Tobacco 11/16/22 08:23 e-Cigarette/Vaping Use Never Used 11/16/22 08:23 Thrive Assessment: Date of Thrive Assessment Date Thrive assessed 07/15/21 11/16/22 08:23 Const General: cooperative Orientation/consciousness: patient oriented x3 Resp Effort & Inspection: normal respiratory effort Auscultation: clear to auscultation bilaterally Cardio Rate: regular rate Rhythm: regular rhythm Heart sounds: S1 normal heart sound present and S2 normal heart sound present Neuro General: patient oriented x3 Extrem Right lower extremity: no edema Left lower extremity: no edema Psych Appearance: grossly normal Mental Status: mental status grossly normal Speech and movement: Normal speech and movement present Affect: normal affect Attitude: cooperative Thought process: Normal thought process present Thought content: Normal thought content present Insight: Good insight present (Psych) Judgement: Good judgement present (Psych) Assessment and Plan Assessment & Plan (1) HTN (hypertension): Code(s): I10 - Essential (primary) hypertension Plan: Labs ordered Plan The patient agreed to the use of a medical billing and coding instructor for this encounter. Scribed for ESTRELLA Horton by Fiona Rabago medical billing and coding instructor, on 11/16/2022 at 08:30 EST. Orders: Orders Comprehensive [place]. Panel Fast Today I10 - Essential (primary) hypertension Lipid Panel Today I10 - Essential (primary) hypertension TSH reflex Free T4 Today I10 - Essential (primary) hypertension Complete Blood Count Auto Diff Today I10 - Essential (primary) hypertension UA CC w/rflx Micro + Cult Today I10 - Essential (primary) hypertension Coding Level of Care Code Est Pt Level 3 (10730) Diagnoses HTN (hypertension) I10
== END 2022-11-16 10:05 | disposition home or self-care (01) ==
PROVIDERS: Visit Provider Nurse Practitioner Family
DX: I10 Essential (primary) hypertension (principal)
CPT/HCPCS: 99213

== ENCOUNTER 2022-12-15 08:18 | Outpatient (AMB) | payer BC, SELFPAY ==
--- NOTE | 2022-12-15 08:50 | AM.OFFWIN_ITS ---
Intake Vital Signs 12/15/22 08:55 Weight 65.317 kg BP 130/74 Blood Pressure Location Lt brachial Position Sitting Pulse 98 Pulse Source Pulse Oximeter Temp 98.1 F Temp Source Oral Pulse Oximetry (%) 98 Oxygen Delivery Method Room Air Intake Visit Reasons: [id number] Intake Note: Patient here for cough that has been present since last tuesday, lost voice. Patient Tobacco Use Status: Never used Tobacco Allergies ciprofloxacin [From CIPRO] Allergy (Intermediate, Verified 12/15/22 08:56) JOINT PAIN codeine [CODEINE] Allergy (Mild, Verified 12/15/22 08:56) LOOPY Penicillins Allergy (Mild, Verified 12/15/22 08:56) RASH penicillin G Allergy (Unknown, Verified 12/15/22 08:56) Unknown Do you need a note to return to daycare/school/sports/work: No HPI HPI Comments History of Present Illness Details 0920 This is a 72-year-old female presenting with fatigue, malaise, dry cough, loss of voice x5 days, not improving. Patient denies any sick contacts. Patient denies chest pain, shortness of breath, nausea, vomiting, abdominal pain, fevers, chills, headache, vision changes, dizziness and weakness. Physical examination benign Concerns for viral illness versus bronchitis versus laryngitis. Unlikely PE, pneumonia, ACS. No signs of acute respiratory distress Plan at this time will treat with prednisone, doxycycline. Will also given albuterol inhaler. Educated patient on diagnosis and treatment plan, answered all question, patient verbalizes understanding. At this time patient will be discharged home, advised to return with new or worsening symptoms. Educated on worrisome signs and symptoms and when to return. At this time I feel comfortable discharge home. [facility] Medical History Adrenal adenoma Surgical History Hx of right knee surgery Social History Housing: House Patient Tobacco Use Status: Never used Tobacco e-Cigarette/Vaping Use: Never Used Second Hand Smoke Exposure: No service: No Current occupational status: retired Current occupational exposures/hazards: No Cognitive needs: No Hearing needs: No Vision needs: No Review of Systems Const Details: Constitutional : No Weight loss, No Fever, No Chills, + Fatigue, + Malaise ENT/Mouth : No sore throat, No Rhinorrhea Eyes: No Eye Pain, No Swelling, No Redness Cardiovascular : No Chest Pain, No SOB, No Dyspnea on Exertion, No Orthopnea, No Edema, No Palpitations Respiratory : + Cough, No Sputum, No Wheezing Gastrointestinal : No Nausea, No Vomiting, No Diarrhea, No Constipation, No abdominal Pain, No Hematochezia, No Melena Genitourinary : No Dysuria, No Urinary Frequency, No Hematuria, Musculoskeletal : No joint pain, No Myalgias, No Joint Swelling Skin : No Skin Lesions, No rash Neuro : No Weakness, No Numbness, No Dizziness, No Headache Psych : No Anxiety/Panic, No Depression All other systems reviewed and are negative All systems reviewed & are unremarkable except as noted in HPI and below Physical Exam Vital Signs: Last Vital Signs Temp 98.1 F 12/15/22 08:55 Pulse 98 12/15/22 08:55 BP 130/74 12/15/22 08:55 Pulse Ox 98 12/15/22 08:55 Oxygen Delivery Method Room Air 12/15/22 08:55 Vital signs stable Appearance: Alert.? Oriented X3.? No acute distress.? Head: Normocephalic, atraumatic, no step-offs or deformities Eyes: Pupils equal, round and reactive to light.? Neck: Normal inspection.? Neck supple.? CVS: Normal heart rate and rhythm.? Pulses normal.? Respiratory: No respiratory distress.? Breath sounds normal.? Abdomen: Soft and nontender.? Skin: Skin warm and dry.? Normal skin color.? Normal skin turgor.? Extremities: No lower extremity edema.? No calf ttp. 5/5 strength to bilateral upper and lower extremities Neuro: Oriented X 3.? No motor deficit.? No sensory deficit. CN 2-12 intact Assessment & Plan Assessment & Plan (1) Bronchitis: Code(s): J40 - Bronchitis, not specified as acute or chronic Plan Take your medications as prescribed. If you were prescribed antibiotics today, it is important that you take your medication to their entirety, do not skip any doses, do not finish them early. Follow-up with your primary care provider this week. Return to the emergency department with new or worsening symptoms. Such as fevers, chills, chest pain, shortness of breath, nausea, vomiting, dizziness, headache, vision changes, lethargy In case of emergency call 911 Medications: New albuterol sulfate 90 mcg/actuation 2 puffs inhalation Q6H PRN 6.7 grams 0RF shortness of breath or wheezing prednisone 40 mg (2 x 20 mg) PO DAILY 10 tabs 0RF 5 days doxycycline hyclate 100 mg PO BID 14 caps 0RF 7 days Coding Level of Care Code Est Pt Level 3 (86419) Diagnoses Bronchitis J40
[2022-12-15 08:55] VITALS: BP 130/74; PULSE 98; TEMP 36.7; O2SAT 98
== END 2022-12-15 10:47 | disposition home or self-care (01) ==
PROVIDERS: PCP Nurse Practitioner Family; Visit Provider Physician Assistant
DX: J40 Bronchitis, not specified as acute or chronic (principal)
CPT/HCPCS: 99213

== ENCOUNTER 2023-03-17 08:11 | Outpatient (REF) | payer MEDICARE, SELFPAY | END 2023-03-17 08:12 | disposition home or self-care (01) | LOC: HO.MAMMO 08:11 | PROVIDERS: PCP Nurse Practitioner Family; Visit Provider Nurse Practitioner Family | DX: Z12.31 Encounter for screening mammogram for malignant neoplasm of breast (principal) | CPT/HCPCS: 77063; 77067 ==

== ENCOUNTER → 2023-03-17 08:30 | Outpatient (BNV) | payer MEDICARE, SELFPAY | PROVIDERS: PCP Nurse Practitioner Family; Visit Provider Radiology Diagnostic Radiology | DX: Z12.31 Encounter for screening mammogram for malignant neoplasm of breast (principal) | CPT/HCPCS: 77063; 77067 ==

== ENCOUNTER 2023-05-16 08:12 | Outpatient (AMB) | payer BC, SELFPAY ==
[2023-05-16 08:32] VITALS: BP 140/86; PULSE 90; O2SAT 97; BMI 29.7
--- NOTE | 2023-05-16 08:32 | MHC.PC.OV ---
Vital Signs 05/16/23 08:32 05/16/23 09:38 Height 4 ft 11 in Weight 147 lb 2 oz BMI 29.7 BP 140/86 H 130/78 Blood Pressure Location Rt brachial Rt brachial Position Sitting Sitting Pulse 90 Pulse Source Pulse Oximeter Pulse Oximetry (%) 97 Oxygen Delivery Method Room Air Intake Visit Reasons: Annual PE Intake Note: Pt is here for Annual PE Allergies ciprofloxacin [From CIPRO] Allergy (Intermediate, Verified 05/16/23 08:57) JOINT PAIN codeine [CODEINE] Allergy (Mild, Verified 05/16/23 08:57) LOOPY Penicillins Allergy (Mild, Verified 05/16/23 08:57) RASH penicillin G Allergy (Unknown, Verified 05/16/23 08:57) Unknown Medication List - Last Reconciled 05/16/23 by ESTRELLA Bwoer albuterol sulfate 90 mcg/actuation 2 puffs inhalation Q6H PRN cholecalciferol (vitamin D3) 50 mcg PO DAILY 90 days famotidine (Pepcid) 40 mg PO DAILY fluticasone propionate 50 mcg/actuation (Flonase Allergy Relief) 1 spray intranasal DAILY PRN ibandronate 150 mg PO .Q month 90 days loratadine (Claritin) 10 mg PO DAILY losartan 25 mg PO DAILY rosuvastatin 10 mg PO DAILY 90 days Tobacco use date assessed: 05/16/23 Fall risk assessment: No Falls in past year Last assessed Fall Risk: 05/16/23 Dental Screening Dental Screen Date: 05/16/23 Did you have a dental visit in the last 12 months?: Yes Did you have a dental problem in the last 6 months where you did not have access to dental care?: No Was dental information given to patient?: Patient has dentist HPI Annual PE HPI Details Pt is here for a PE. Will order labs. Cologuard is up to date. Mammo is up to date. Due for bone density in July, will order. HTN: Blood pressure is managed with losartan 25mg. Pt reports that her blood pressure at home is much more stable. Denies chest pain, shortness of breath, headache, dizziness, and blurred vision. Hx of vitamin D deficiency, will order labs. PFSH Medical History Adrenal adenoma Surgical History Hx of right knee surgery Social History Housing: House Patient Tobacco Use Status: Never used Tobacco e-Cigarette/Vaping Use: Never Used Second Hand Smoke Exposure: No service: No Current occupational status: retired Current occupational exposures/hazards: No Cognitive needs: No Hearing needs: No Vision needs: No Questionnaire PHQ-9 Over the last 2 weeks, how often have you been bothered by any of the following problems? 1. Little interest or pleasure in doing things: not at all 2. Feeling down, depressed, or hopeless: not at all 3. Trouble falling or staying asleep, or sleeping too much: several days 4. Feeling tired or having little energy: several days 5. Poor appetite or overeating: not at all 6. Feeling bad about yourself - or that you are a failure or have let yourself or your family down: not at all 7. Trouble concentrating on things, such as reading the newspaper or watching television: not at all 8. Moving or speaking so slowly that other people could have noticed. Or the opposite - being so fidgety or restless that you have been moving around a lot more than usual: not at all 9. Thoughts that you would be better off or of hurting yourself in some way: not at all Total score: 2 Depression Screening Interpretation: Negative Depression Screening Done: Yes 82576 - PHQ-9 Billing: Yes Source: Developed by Drs. Pete Gomez, Yolette Beltran, Jah Tapia and colleagues, with an educational pilar from [employer]. Thrive Questionnaire Date Thrive assessed: 05/16/23 I am a: Patient What is your living situation today?: I have a steady place to live Within the past 12 months, did the food you bought not last and you didn't have the money to get more?: Never true Within the past 12 months, did you worry whether your food would run out before you got money to buy more?: Never true Do you have trouble paying for medicines?: No Do you have trouble getting transportation to medical appointments?: No Do you have trouble paying your heating and electricity bill?: No Do you have trouble taking care of your child, family member or friend?: No Do you have trouble with day-to-day activities such as bathing, preparing meals, shopping, managing finances, etc.?: No Are you currently unemployed and looking for a job?: No Are you interested in more education?: No THRIVE Score: 0 AUDIT C Alcohol Use Questionnaire (AUDIT-C) 1. How often do you have a drink containing alcohol?: Never Total Score: 0 JAHAIRA-7 AMB Questionnaire JAHAIRA-7 Date JAHAIRA - 7 assessed: 05/16/23 Feeling nervous, anxious, or on edge: 0 = Not at all Not being able to stop or control worryin = Not at all Worrying too much about different things: 0 = Not at all Trouble relaxin = Not at all Being so restless that it is hard to sit still: 0 = Not at all Becoming easily annoyed or irritable: 0 = Not at all Feeling afraid as if something awful might happen: 0 = Not at all Total JAHAIRA-7 score (0-4 normal; 5-9 mild; 10-14 moderate; 15-21 severe): 0 Source: Developed by Drs. Pete Gomez, Yolette Beltran, Jah Tapia and colleagues, with an educational pilar from [employer]. Review of Systems Const Denies chills and Denies fever(s) Eyes Denies blurry vision ENT Denies vertigo, Denies dizziness and Denies sore throat Card Denies chest pain at rest, Denies chest pain with activity, Denies diaphoresis, Denies dyspnea and Denies dyspnea on exertion Resp Denies cough, Denies dyspnea, Denies dyspnea on exertion and Denies wheezing GI Denies abdominal pain, Denies melena, Denies hematochezia, Denies constipation, Denies diarrhea and Denies loose stools Denies hematuria Musc Denies numbness and Denies tingling Skin/Breast Denies lesions Neuro Denies vertigo, Denies dizziness, Denies numbness and Denies tingling Psych Denies anxiety, Denies depression, Denies homicidal ideation, Denies suicidal ideation and Denies other (substance abuse) Aller/Immun Denies wheezing Physical exam (Primary Care) Vital Signs: Last Vital Signs Pulse 90 05/16/23 08:32 BP 130/78 05/16/23 09:38 Pulse Ox 97 05/16/23 08:32 Oxygen Delivery Method Room Air 05/16/23 08:32 BMI result Body Mass Index 29.7 Tobacco/Smoking Status: Tobacco use Status Tobacco use date assessed 05/16/23 05/16/23 08:37 Patient Tobacco Use Status Never used Tobacco 05/16/23 08:34 e-Cigarette/Vaping Use Never Used 05/16/23 08:34 PHQ-9: PHQ-9 Score PHQ-9: Total score 2 05/16/23 09:38 Depression Screening Interpretation: Negative Thrive Assessment: Date of Thrive Assessment Date Thrive assessed 05/16/23 05/16/23 08:47 Const General: cooperative Nutritional Appearance: well nourished Orientation/consciousness: patient oriented x3 HENMT Head: Yes normal to inspection, Yes normocephalic and Yes atraumatic Ears: TM's normal bilaterally Eyes General: appearance normal, both eyes and all related structures Alignment and Position: alignment normal and position normal Neck Neck: Yes normal visual inspection and Yes no lymphadenopathy Thyroid: Thyroid normal Resp Effort & Inspection: normal respiratory effort Auscultation: clear to auscultation bilaterally Cardio Rate: regular rate Rhythm: regular rhythm Heart sounds: S1 normal heart sound present, S2 normal heart sound present and no murmurs GI Palpation (GI): Soft to palpation and nontender Auscultation: normal bowel sounds Skin Rashes: no rashes Neuro General: patient oriented x3, moves all extremities, no focal motor deficits and deep tendon reflexes 2+ bilaterally Romberg Test: Negative Psych Appearance: grossly normal Mental Status: mental status grossly normal Speech and movement: Normal speech and movement present Affect: normal affect Attitude: cooperative Thought process: Normal thought process present Thought content: Normal thought content present Insight: Good insight present (Psych) Judgement: Good judgement present (Psych) Assessment and Plan Assessment & Plan (1) Vitamin D deficiency: Code(s): E55.9 - Vitamin D deficiency, unspecified Plan: Vitamin D ordered (2) Osteoporosis: Code(s): M81.0 - Age-related osteoporosis without current pathological fracture Plan: Bone density ordered (3) HTN (hypertension): Code(s): I10 - Essential (primary) hypertension Plan: Pt will continue to monitor BP at home, though stable Plan The patient agreed to the use of a medical administrative specialist for this encounter. Scribed for ESTRELLA Horton by Fiona Rabago medical administrative specialist, on 05/16/2023 at 08:55 EST. Orders: Orders XR DEXA axial skeleton Today E55.9 - Vitamin D deficiency, unspecified, M81.0 - Age-related osteoporosis without current pathological fracture AMB EKG-In Office Today I10 - Essential (primary) hypertension Coding Level of Care Code Est Pt Prev Care >65y(68246) Diagnoses Vitamin D deficiency E55.9 Osteoporosis M81.0 HTN (hypertension) I10
[2023-05-16 09:38] VITALS: BP 130/78
== END 2023-05-16 09:41 | disposition home or self-care (01) ==
PROVIDERS: PCP Nurse Practitioner Family; Visit Provider Nurse Practitioner Family
DX: Z00.00 Encounter for general adult medical examination without abnormal findings (principal); I10 Essential (primary) hypertension; E55.9 Vitamin D deficiency, unspecified; M81.0 Age-related osteoporosis without current pathological fracture
CPT/HCPCS: 99397

== ENCOUNTER 2023-05-20 07:44 | Outpatient (REF) | payer MEDICARE, SELFPAY ==
[2023-05-20 11:22] LABS: MANUAL DIFF FLAG NO
[2023-05-20 11:24] LABS: Appearance Urine Clear; Color Urine Yellow; Glucose Urine UA Negative (Negative); Leukocyte Esterase Urine Trace (Negative); Nitrite Urine Negative (Negative); PH 5.5 (5.0-9.0); Specific Gravity - Urine 1.015 (1.005-1.025); UMIC TRIGGER UACC YES; Urine Blood Negative (Negative); Urine Ketones Negative (Negative); Urine Protein Negative (Neg-Trace)
[2023-05-20 11:35] LABS: Basophils Absolute Auto 0.1 X10*3/uL (0.0-0.2); Basophils Percent Auto 1.2 % (0-2); Eosinophils Absolute Auto 0.3 X10*3/uL (0.0-0.4); Eosinophils Percent Auto 4.9 % (0-4); Hematocrit 41.6 % (37.0-47.0); Hemoglobin 13.6 g/dl (12.0-16.0); Imm Gran Abs Auto 0.02 X10*3/uL (0.00-0.03); Imm Gran Pct Auto 0.3 % (0.0-0.4); Lymphocytes Absolute Auto 1.6 X10*3/uL (1.2-4.9); Lymphocytes Percent Auto 26.8 % (20-40); Mean Corpuscular HGB Conc 32.7 g/dl (31.0-35.0); Mean Corpuscular Volume 91.6 fL (80.0-98.0); Monocytes Absolute Auto 0.5 X10*3/uL (0.1-1.2); Monocytes Percent Auto 8.5 % (2-11); Neutrophils Absolute Auto 3.4 x10*3/uL (2.0-8.3); Neutrophils Percent Auto 58.3 % (45-73); Platelet Count 263 X10*3/uL (160-400); Red Blood Count 4.54 X10*6/uL (4.20-5.50); Red Cell Distribution Width 13.4 % (11.0-16.0); White Blood Count 5.9 X10*3/uL (4.8-10.8)
[2023-05-20 11:38] LABS: Bacteria Urine None Seen (None Seen); Hyaline Casts Urine 0-2 /LPF (0-2); RBC Urine 0-2 /HPF (0-2); Squamous Epithelial Cell Urine 0-2 /HPF (0-2); WBC Urine 0-5 /HPF (0-5)
[2023-05-20 12:13] LABS: TSH reflex Free T4 2.22 uIU/mL (0.32-4.0)
[2023-05-20 12:15] LABS: Anion Gap 10 (12-20)
[2023-05-20 12:19] LABS: Alanine Aminotransferase 19 U/L (0-31); Albumin Level 4.3 g/dL (3.5-5.0); Alkaline Phosphatase 60 U/L (39-117); Aspartate Amino Transferase 23 U/L (5-31); Bilirubin Total 0.5 mg/dL (0.0-1.0); Blood Urea Nitrogen 15 mg/dL (9-16); Calcium 9.7 mg/dL (8.4-10.2); Carbon Dioxide 27 mmol/L (22-29); Chloride 110 mmol/L (96-108); Cholesterol 160 mg/dL (<200); Estimated Glomerular Filt Rate > 60; Glucose Fasting 90 mg/dL (60-99); HDL Cholesterol 58 mg/dL (>40); LDL Cholesterol Calculated 85 mg/dL (<100); Potassium 4.1 mmol/L (3.3-5.1); Sodium 143 mmol/L (135-145); Total Protein 7.6 g/dL (6.5-8.0); Triglycerides 85 mg/dL (<150)
== END 2023-05-20 07:45 | disposition home or self-care (01) ==
LOC: HO.HMGCLDS 07:44
PROVIDERS: PCP Nurse Practitioner Family; Visit Provider Nurse Practitioner Family
DX: I10 Essential (primary) hypertension (principal)
CPT/HCPCS: 36415; 80053; 80061; 81001; 84443; 85025

== ENCOUNTER 2023-07-29 09:35 | Outpatient (REF) | payer MEDICARE, SELFPAY ==
--- NOTE | ~2023-07-29 | MM_ITS ---
EXAMINATION: BONE DENSITOMETRY CLINICAL INDICATION: Age-related osteoporosis without current pathological fracture. COMPARISON: Baseline BD dated 07/24/2021. TECHNIQUE: Using a [employer] DXA System (software version: 13.1) manufactured by [employer], dual-energy x-ray absorptiometry was performed of the lumbar spine and left hip. The images are of good technical quality. Summary results are attached. FINDINGS: LEFT FEMUR, NECK: Current: BMD 0.740 g/cm2, Z-score -0.2, T-score -2.1, osteopenia. Baseline: BMD 0.729 g/cm2. LEFT FEMUR, TOTAL: Current: BMD 0.803 g/cm2, Z-score 0.1, T-score -1.6, osteopenia, 0.0% no change from baseline (<5% change is not significant). Baseline: BMD 0.803 g/cm2. AP SPINE L1-L3 (excluding L4): The data of L1-L4 has been changed to exclude the L4 vertebral body, because degenerative sclerosis at this level may cause overestimation of lumbar spine density. Current: BMD 1.120 g/cm2, Z-score 1.3, T-score -0.4, normal, 1.0% increase from baseline (<5% change is not significant). Baseline: BMD 1.109 g/cm2. IDENTIFIED RISK FACTORS: Early menopause, secondary osteoporosis, history of fracture (adult). HISTORY OF FRACTURE: Other. MEDICATIONS: Vitamin D, bisphosphonates. MM/XR DEXA axial skeleton IMPRESSION: 1. DIAGNOSIS: Osteopenia based on the lowest T-score value of -2.1 in the femoral neck applying World Health Organization criteria. 2. 10-YEAR FRACTURE RISK PREDICTION, FRAX: Not performed in this patient on estrogen or bone building treatments. 3. Treatment Recommendations: NOF guidelines recommend consideration for treatment in postmenopausal women and men age 50 and older presenting with the following: -A hip or vertebral (clinical or morphometric) fracture. -T-score less than or equal to -2.5 at the femoral neck or spine after appropriate evaluation to exclude secondary causes. -Low bone mass at the hip or spine and a 10-year fracture probability by FRAX of greater than or equal to 3% for hip fracture or greater than or equal to 20% for major osteoporotic fracture based on the [place] adapted WHO algorithm. 4. Other Recommendations: All treatment decisions require clinical judgment and consideration of individual patient factors, including patient preferences, comorbidities, previous drug use, risk factors not captured in the FRAX model (e.g. frailty, falls, vitamin D deficiency, increased bone turnover, interval significant decline in bone density) and possible under or overestimation of fracture risk by FRAX. Additional medical evaluation for secondary cause of low bone mineral density may be appropriate. FUTURE SCAN RECOMMENDATION: People with diagnosed cases of osteoporosis or at high risk for fracture should have regular bone mineral density tests. For patients eligible for Medicare, routine testing is allowed once every 2 years. The testing frequency can be increased to one year for patients who have rapidly progressing disease, those who are receiving or discontinuing medical therapy to restore bone mass, or have additional risk factors.
== END 2023-07-29 09:36 | disposition home or self-care (01) ==
LOC: HO.MAMMO 09:35
PROVIDERS: PCP Nurse Practitioner Family; Visit Provider Nurse Practitioner Family
DX: E55.9 Vitamin D deficiency, unspecified (principal); M81.0 Age-related osteoporosis without current pathological fracture
CPT/HCPCS: 77080

== ENCOUNTER 2023-09-01 12:06 | Outpatient (AMB) | payer MEDICARE, SELFPAY ==
[2023-09-01 12:12] VITALS: BP 132/76; PULSE 82; TEMP 36.6; O2SAT 97
--- NOTE | 2023-09-01 12:12 | MHC.OFFWIV ---
Intake Vital Signs 09/01/23 12:12 Height 4 ft 11 in BP 132/76 Blood Pressure Location Rt brachial Position Sitting Pulse 82 Pulse Source Pulse Oximeter Temp 97.9 F Temp Source Temporal Artery Scan Pulse Oximetry (%) 97 Intake Visit Reasons: EP lower rt side/back pain 10 days Intake Note: pt is here for lower right side and back pain for 10 days Patient Tobacco Use Status: Never used Tobacco Allergies ciprofloxacin [From CIPRO] Allergy (Intermediate, Verified 09/01/23 12:13) JOINT PAIN codeine [CODEINE] Allergy (Mild, Verified 09/01/23 12:13) LOOPY Penicillins Allergy (Mild, Verified 09/01/23 12:13) RASH penicillin G Allergy (Unknown, Verified 09/01/23 12:13) Unknown Do you need a note to return to daycare/school/sports/work: No HPI HPI Comments History of Present Illness Details 73 y/o female patient who presents to walk in clinic with c/o Right sided lower back pain that radiates to the right lower extremity. Reports that pain started ~ 10 days. She was recently in a long distance Car ride (6 hours) with Family, and this is when she noticed the pain. Denies injury or trauma. No h/o chronic back pain. She was briefly seen at a local ED for this concern and was told Etiology of her pain was related to Muscleskeletal . Denies bladder or bowel symptoms today. She has tried Ibuprofen, heat/Ice with no relief. COUNTS INCLUDE 234 BEDS AT THE [facility] Medical History Adrenal adenoma Surgical History Hx of right knee surgery Social History Housing: House Patient Tobacco Use Status: Never used Tobacco e-Cigarette/Vaping Use: Never Used Second Hand Smoke Exposure: No service: No Current occupational status: retired Current occupational exposures/hazards: No Cognitive needs: No Hearing needs: No Vision needs: No Review of Systems Const All systems reviewed & are unremarkable except as noted in HPI and below Physical Exam Vital Signs: Last Vital Signs Temp 97.9 F 09/01/23 12:12 Pulse 82 09/01/23 12:12 BP 132/76 09/01/23 12:12 Pulse Ox 97 09/01/23 12:12 Const General: comfortable and no acute distress Nutritional Appearance: obese Orientation/consciousness: patient oriented x3 General: Yes no CVA tenderness Back/Spine/Pelvis Back: no CVA tenderness and back tenderness Thoracic/Lumbar Spine: thoraco-lumbar ROM normal, paraspinal muscle tenderness, thoraco-lumbar spasm and lumbar spinal tenderness at L4 and at L5 Sacrum: tenderness on the right Coccyx: Coccyx tenderness present on direct palpation Neuro General: patient oriented x3, gait normal and moves all extremities Psych Speech and movement: Normal speech and movement present Assessment & Plan Assessment & Plan (1) Low back pain: Code(s): M54.50 - Low back pain, unspecified Qualifiers: Chronicity: acute Back pain laterality: right Sciatica presence: with sciatica Sciatica laterality: sciatica of right side Qualified Code(s): M54.41 - Lumbago with sciatica, right side Plan: - Acetaminophen for pain relief - Ice/Hot - Encouraged routine Body Massages - Encourage low impact exercises such as swimming and short walks - Avoid prolonged Sitting - Advised PT - F/U with PCP Coding Level of Care Code Est Pt Level 3 (42791) Diagnoses Acute right-sided low back pain with right-sided sciatica M54.41 Chronicity: acute Back pain laterality: right Sciatica presence: with sciatica Sciatica laterality: sciatica of right side Time Spent (min) 15
== END 2023-09-01 12:58 | disposition home or self-care (01) ==
PROVIDERS: PCP Nurse Practitioner Family; Visit Provider Nurse Practitioner Family
DX: M54.41 Lumbago with sciatica, right side (principal)
CPT/HCPCS: 99213

== ENCOUNTER 2023-10-04 11:16 | Outpatient (AMB) | payer MEDICARE, SELFPAY ==
--- NOTE | 2023-10-04 11:24 | A.OFFPC_ITS ---
Vital Signs 10/04/23 11:27 Height 4 ft 11 in Weight 146 lb BMI 29.5 BP 126/86 Blood Pressure Location Rt brachial Position Sitting Pulse 84 Pulse Source Pulse Oximeter Pulse Oximetry (%) 98 Oxygen Delivery Method Room Air Intake Visit Reasons: Waist and back pain-skeletal Intake Note: Patient here for ED follow up Allergies ciprofloxacin [From CIPRO] Allergy (Intermediate, Verified 10/04/23 11:28) JOINT PAIN codeine [CODEINE] Allergy (Mild, Verified 10/04/23 11:28) LOOPY Penicillins Allergy (Mild, Verified 10/04/23 11:28) RASH penicillin G Allergy (Unknown, Verified 10/04/23 11:28) Unknown Tobacco use date assessed: 05/16/23 Fall risk assessment: No Falls in past year Last assessed Fall Risk: 10/04/23 Dental Screening Dental Screen Date: 05/16/23 HPI Waist and back pain-skeletal HPI Details Pt c/o lower back pain. She reports that the pain radiates to her right lateral side, to anterior abd. She was seen in the ER in [place] on 08/22 and workup was reportedly negative (missing notes). Pt was then seen in the walk-in on 08/31 with ongoing pain. It was recommended that pt use ice/heat, tylenol, and do exercises at home. Pt reports ongoing pain that is worse with turning her upper torso. Pt does not have dermatitis or signs of shingles, though this is a differential diagnosis. Will send prednisone. Recommended warm moist heat to the region. Will have pt keep in close contact with me regarding this. Denies any signs of cauda equina. [facility] Medical History Adrenal adenoma Surgical History Hx of right knee surgery Social History Housing: House Patient Tobacco Use Status: Never used Tobacco e-Cigarette/Vaping Use: Never Used Second Hand Smoke Exposure: No service: No Current occupational status: retired Current occupational exposures/hazards: No Cognitive needs: No Hearing needs: No Vision needs: No Questionnaire Thrive Questionnaire Date Thrive assessed: 05/16/23 JAHAIRA-7 AMB Questionnaire JAHAIRA-7 Date JAHAIRA - 7 assessed: 05/16/23 Source: Developed by Drs. Pete Gomez, Yolette Beltran, Jah Tapia and colleagues, with an educational pilar from [employer]. Review of Systems Const Reports as per HPI Physical exam (Primary Care) Vital Signs: Last Vital Signs Pulse 84 10/04/23 11:27 BP 126/86 10/04/23 11:27 Pulse Ox 98 10/04/23 11:27 Oxygen Delivery Method Room Air 10/04/23 11:27 BMI result Body Mass Index 29.5 Tobacco/Smoking Status: Tobacco use Status Tobacco use date assessed 05/16/23 10/04/23 11:27 Patient Tobacco Use Status Never used Tobacco 10/04/23 11:27 e-Cigarette/Vaping Use Never Used 10/04/23 11:27 Thrive Assessment: Date of Thrive Assessment Date Thrive assessed 05/16/23 10/04/23 11:27 Const General: cooperative Orientation/consciousness: patient oriented x3 Resp Effort & Inspection: normal respiratory effort Auscultation: clear to auscultation bilaterally Cardio Rate: regular rate Rhythm: regular rhythm Heart sounds: S1 normal heart sound present and S2 normal heart sound present Back/Spine/Pelvis Other: exacerbation of pain to upper lumbar region radiating anteriorly and laterally along right lat with turning upper torso side to side, no pain with bilat knee to chest raises, bilat entire LE raises, heel and toe walking, no pain with palpation, no dermatitis or signs of shingles Neuro General: patient oriented x3 Psych Appearance: grossly normal Mental Status: mental status grossly normal Speech and movement: Normal speech and movement present Affect: normal affect Attitude: cooperative Thought process: Normal thought process present Thought content: Normal thought content present Insight: Good insight present (Psych) Judgement: Good judgement present (Psych) Assessment and Plan Assessment & Plan (1) Lower back pain: Code(s): M54.50 - Low back pain, unspecified Plan: XR and prednisone. Pt will contact me with her status via portal over this week. Plan The patient agreed to the use of a medical affairs specialist for this encounter. Scribed for ESTRELLA Horton by alicia Potter scribe, on 10/04/2023 at 11:40 EST. Orders: Orders XR lumbar spine 2-3V Today M54.50 - Low back pain, unspecified Medications: New 2 prednisone 50 mg PO DAILY 6 tabs 0RF Coding Level of Care Code Est Pt Level 3 (40368) Diagnoses Lower back pain M54.50
[2023-10-04 11:27] VITALS: BP 126/86; PULSE 84; O2SAT 98; BMI 29.5
== END 2023-10-04 12:11 | disposition home or self-care (01) ==
PROVIDERS: PCP Nurse Practitioner Family; Visit Provider Nurse Practitioner Family
DX: M54.50 Low back pain, unspecified (principal)
CPT/HCPCS: 99213

== ENCOUNTER 2023-10-04 14:04 | Outpatient (REF) | payer MEDICARE, SELFPAY ==
--- NOTE | ~2023-10-04 | XR_ITS ---
EXAMINATION: XR LUMBOSACRAL SPINE CLINICAL INFORMATION: Low back pain COMPARISON: None available. TECHNIQUE: Three views of the lumbosacral spine. FINDINGS: 5 nonrib-bearing lumbar-type vertebral bodies. No acute visible fracture or dislocation. Slight levocurvature of the mid lumbar spine. Grade 1-2 anterolisthesis of L3 on L4. Multilevel degenerative changes greatest at L4-L5 with disc space narrowing, endplate sclerosis, osteophyte formation, and lower lumbar spine facet arthropathy. Vertebral bodies and spaces are otherwise maintained. Posterior elements are intact. Paraspinal soft tissues are unremarkable. Visualized bowel gas is unremarkable. XR/XR lumbar spine 2-3V IMPRESSION: 1. No acute visible fracture or dislocation. 2. Slight levocurvature of the mid lumbar spine. 3. Grade 1-2 anterolisthesis of L3 on L4. 4. Multilevel degenerative changes greatest at L4-L5.
== END 2023-10-04 14:05 | disposition home or self-care (01) ==
LOC: HO.HMGCX 14:04
PROVIDERS: PCP Nurse Practitioner Family; Visit Provider Nurse Practitioner Family
DX: M54.50 Low back pain, unspecified (principal)
CPT/HCPCS: 72100

== ENCOUNTER 2023-10-25 07:59 | Outpatient (AMB) | payer MEDICARE, SELFPAY ==
--- NOTE | 2023-10-25 07:06 | MHC.PC.OV ---
Intake Visit Reasons: review results with patient Allergies ciprofloxacin [From CIPRO] Allergy (Intermediate, Verified 10/04/23 11:28) JOINT PAIN codeine [CODEINE] Allergy (Mild, Verified 10/04/23 11:28) LOOPY Penicillins Allergy (Mild, Verified 10/04/23 11:28) RASH penicillin G Allergy (Unknown, Verified 10/04/23 11:28) Unknown Medication List - Last Reconciled 10/25/23 by AMOR Bower-ROHAN albuterol sulfate 90 mcg/actuation 2 puffs inhalation Q6H PRN cholecalciferol (vitamin D3) 50 mcg PO DAILY 90 days famotidine (Pepcid) 40 mg PO DAILY fluticasone propionate 50 mcg/actuation (Flonase Allergy Relief) 1 spray intranasal DAILY PRN ibandronate 150 mg PO .Q month 90 days loratadine (Claritin) 10 mg PO DAILY losartan 25 mg PO DAILY prednisone 50 mg PO DAILY rosuvastatin 10 mg PO DAILY 90 days Tobacco use date assessed: 05/16/23 Dental Screening Dental Screen Date: 05/16/23 HPI review results with patient HPI Details Pt had a recent XR of her lumbar spine which showed no acute visible fracture or dislocation. Slight levocurvature of the mid lumbar spine. Grade 1-2 anterolisthesis of L3 on L4. Multilevel degenerative changes greatest at L4-L5. Pt reports ongoing pain especially with sitting or standing for long periods. Will refer to PT. Denies any signs of cauda equina or radicular symptoms. Pt also reports right hip pain. Will order XR of right hip. Will send meloxicam. [facility] Medical History Adrenal adenoma Surgical History Hx of right knee surgery Social History Housing: House Patient Tobacco Use Status: Never used Tobacco e-Cigarette/Vaping Use: Never Used Second Hand Smoke Exposure: No service: No Current occupational status: retired Current occupational exposures/hazards: No Cognitive needs: No Hearing needs: No Vision needs: No Questionnaire Thrive Questionnaire Date Thrive assessed: 05/16/23 JAHAIRA-7 AMB Questionnaire JAHAIRA-7 Date JAHAIRA - 7 assessed: 05/16/23 Source: Developed by Drs. Pete Gomez, Yolette Beltran, Jah Tapia and colleagues, with an educational pilar from [employer]. Review of Systems Const Reports as per HPI Physical exam (Primary Care) Tobacco/Smoking Status: Tobacco use Status Tobacco use date assessed 05/16/23 10/25/23 07:07 Patient Tobacco Use Status Never used Tobacco 10/25/23 07:07 e-Cigarette/Vaping Use Never Used 10/25/23 07:07 Thrive Assessment: Date of Thrive Assessment Date Thrive assessed 05/16/23 10/25/23 07:07 Const General: cooperative Orientation/consciousness: patient oriented x3 Neuro General: patient oriented x3 Psych Appearance: grossly normal Mental Status: mental status grossly normal Speech and movement: Clear speech present Affect: normal affect Attitude: cooperative Thought process: Normal thought process present Thought content: Normal thought content present Insight: Good insight present (Psych) Judgement: Good judgement present (Psych) Telehealth Telehealth Telehealth Platform: Vinny Location of provider rendering services: practice address Location of patient: address on file Patient Identification confirmed using: Name, : Yes Telehealth method: video Patient verbally consented to treatment: Yes Patient verbally consented to billing insurance company: Yes Patient informed of any privacy concerns related to visit: Yes Minutes spent on Phone/Video with Pt.: 10 Assessment and Plan Assessment & Plan (1) Right hip pain: Code(s): M25.551 - Pain in right hip Plan: XR ordered (2) Lower back pain: Code(s): M54.50 - Low back pain, unspecified Plan: PT Plan The patient agreed to the use of a certified ophthalmic medical technician for this encounter. Scribed for ESTRELLA Horton by Fiona Rabago certified ophthalmic medical technician, on 10/25/2023 at 07:05 EST. Orders: Orders PT Evaluation and Treatment Today M54.50 - Low back pain, unspecified XR hip RT min 2V Today M25.551 - Pain in right hip Medications: New meloxicam 7.5 mg PO DAILY 20 tabs 0RF Coding Level of Care Code Tele Est Pt Level 3 (32601) Diagnoses Right hip pain M25.551 Lower back pain M54.50
== END 2023-10-25 09:11 | disposition home or self-care (01) ==
LOC: HO.HMGC 07:59
PROVIDERS: PCP Nurse Practitioner Family; Visit Provider Nurse Practitioner Family
DX: M25.551 Pain in right hip (principal); M54.50 Low back pain, unspecified
CPT/HCPCS: 99213

== ENCOUNTER 2023-11-03 10:39 | Outpatient (REF) | payer MEDICARE, SELFPAY ==
--- NOTE | ~2023-11-03 | XR_ITS ---
EXAMINATION: XR HIP, RIGHT CLINICAL INFORMATION: Right hip pain. COMPARISON: None available. TECHNIQUE: AP and frog-leg lateral views of the right hip. FINDINGS: Mild osteoarthritis in the right hip joint with marginal osteophytes. No cephalad joint space narrowing. Right SI joint is unremarkable. Enthesopathic spurring is present at the right anterior-superior iliac spine. Degenerative spondylosis is noted in the lower lumbar spine. Soft tissues are unremarkable. XR/XR hip RT min 2V IMPRESSION: Mild osteoarthritis in the right hip. No acute osseous findings. Electronically signed by: Hawk Chaudhari MD 11/28/2023 05:36 PM EDT
[2023-11-03 13:38] LABS: Appearance Urine Clear; Color Urine Yellow; Glucose Urine UA Negative (Negative); Leukocyte Esterase Urine Negative (Negative); Nitrite Urine Negative (Negative); Specific Gravity - Urine <= 1.005 (1.005-1.025); Urine Blood Negative (Negative); Urine Ketones Negative (Negative); Urine Protein Negative (Neg-Trace)
== END 2023-11-03 10:40 | disposition home or self-care (01) ==
LOC: HO.HMGCX 10:39
PROVIDERS: PCP Nurse Practitioner Family; Visit Provider Nurse Practitioner Family
DX: M25.551 Pain in right hip (principal); I10 Essential (primary) hypertension
CPT/HCPCS: 73502; 81003

== ENCOUNTER 2023-11-29 09:00 | Outpatient (RCR) | payer MEDICARE, SELFPAY ==
--- NOTE | 2023-11-24 09:39 | MHC.PT.EP ---
[facility] [place] Office [place] Office [place] Office [address] [phone] F: [phone] F: [phone] F: [phone] F: [phone] Physical Therapy Plan of Care Date of Evaluation: 11/24/23 Date of Surgery: n/a Diagnosis: low back pain Assessment: Patient is a 73 year old female presenting to PT with complaints of pain in her low back. Pt reports onset of pain began about 1 year ago due to insidious onset. She presents today with impairments in pain, lumbar ROM, hip strength. 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 Pt expresses parts counterman goal of reducing pain, and is motivated to work towards this in PT. Clinical presentation today is most consistent with signs and sx associated with low back pain and pt will benefit from skilled PT 2 week x 4 weeks to address the following problems and impairments noted upon evaluation: pain, lumbar ROM, hip strength. These problems limit the patient with the following functional activities: ADLs, quilting, puzzles. The prescribed treatment plan of care is medically necessary. Co-morbidities of none were identified and taken into considerations of plan of care. Pt was educated on HEP, role of PT, prognosis, POC. Frequency and Duration: The patient will be seen 2 x week x 4 weeks Short Term Goals: Pt will demonstrate centralization of sx in 2 weeks. Pt will demonstrate improved hip MMT strength by 1/3 grade in 2 weeks. Pt will demonstrate lumbar ROM in available range with no pain in 2 weeks. Installer Goals: Pt will demonstrate ability to complete ADLs with min to no pain in 4 weeks for improved functional mobility. Pt will demonstrate ability to quilt with min to no pain in 4 weeks for return to PLOF. Treatment Plan: Modalities to reduce pain, spasms and effusion. Manual therapy to restore motion and function. Therapeutic exercise to improve strength and flexibility. Neuromuscular re-education for posture and balance. Therapeutic activities to return to functional activities of daily living. Electronically signed by: Emily Covarrubias, PT, DPT, ATC Please sign and return to therapist. Thank you for your referral.
--- NOTE | 2024-01-02 11:00 | MHC.PT.DC ---
[facility] [place] Office [place] Office [place] Office [address] [facility] [phone] F: [phone] F: [phone] F: [phone] F: [phone] Physical Therapy Discharge Report Diagnosis: low back pain Date of Surgery: n/a Date of Evaluation: 11/24/23 Date of Discharge: 01/02/24 Treatments to Date: 2 Cancellations to Date: 1 No Shows to Date: 0 Discharge Status: Discharge Summary: Pt has not attended skilled PT in >30 days and therefore to be d/c at this time. Electronically signed by: Emily Covarrubias, PT, DPT, ATC Please sign and return to therapist. Thank you for your referral.
== END 2024-01-02 11:00 | disposition home or self-care (01) ==
LOC: HO.PTCHIC 09:00
PROVIDERS: PCP Nurse Practitioner Family; Visit Provider Nurse Practitioner Family
DX: M54.50 Low back pain, unspecified (principal)
CPT/HCPCS: 97110; 97161

== ENCOUNTER 2024-02-21 08:02 | Outpatient (REF) | payer MEDICARE, SELFPAY ==
[2024-02-21 10:54] LABS: Anion Gap 16 (12-20); Blood Urea Nitrogen 13 mg/dL (9-16); Calcium 9.6 mg/dL (8.4-10.2); Carbon Dioxide 27 mmol/L (22-29); Chloride 107 mmol/L (96-108); Estimated Glomerular Filt Rate > 60; Potassium 4.5 mmol/L (3.3-5.1); Sodium 145 mmol/L (135-145)
== END 2024-02-21 08:03 | disposition home or self-care (01) ==
LOC: HO.HMGCLDS 08:02
PROVIDERS: PCP Nurse Practitioner Family; Visit Provider Internal Medicine Nephrology
DX: I10 Essential (primary) hypertension (principal)
CPT/HCPCS: 36415; 80051; 82310; 82565; 84520

== ENCOUNTER 2024-03-22 07:50 | Outpatient (REF) | payer MEDICARE, SELFPAY | END 2024-03-22 07:51 | disposition home or self-care (01) | LOC: HO.MAMMO 07:50 | PROVIDERS: PCP Nurse Practitioner Family; Visit Provider Nurse Practitioner Family | DX: Z12.31 Encounter for screening mammogram for malignant neoplasm of breast (principal) | CPT/HCPCS: 77063; 77067 ==

== ENCOUNTER → 2024-03-22 08:15 | Outpatient (BNV) | payer MEDICARE, SELFPAY | PROVIDERS: PCP Nurse Practitioner Family; Visit Provider Internal Medicine | DX: Z12.31 Encounter for screening mammogram for malignant neoplasm of breast (principal) | CPT/HCPCS: 77063; 77067 ==

== ENCOUNTER 2024-03-29 11:31 | Outpatient (REF) | payer MEDICARE, SELFPAY | END 2024-03-29 11:32 | disposition home or self-care (01) | LOC: HO.LAB 11:31 | PROVIDERS: PCP Nurse Practitioner Family | DX: N30.00 Acute cystitis without hematuria (principal) | CPT/HCPCS: 81003; 87086; 99212 ==

== ENCOUNTER 2024-03-29 11:31 | Outpatient (AMB) | payer MEDICARE, SELFPAY ==
--- NOTE | 2024-03-29 12:11 | AM.OFFWIN_ITS ---
Intake Vital Signs 03/29/24 12:14 Height 4 ft 11 in Weight 146 lb BMI 29.5 BP 122/80 Blood Pressure Location Lt brachial Position Sitting Pulse 87 Pulse Source Pulse Oximeter Temp 97.6 F Temp Source Oral Pulse Oximetry (%) 96 Oxygen Delivery Method Room Air Intake Visit Reasons: EP ? UTI Intake Note: Patient here for burning when urinating, frequency and burning which started about 1 week ago. Patient Tobacco Use Status: Never used Tobacco Allergies ciprofloxacin [From CIPRO] Allergy (Intermediate, Verified 03/29/24 12:14) JOINT PAIN codeine [CODEINE] Allergy (Mild, Verified 03/29/24 12:14) LOOPY Penicillins Allergy (Mild, Verified 03/29/24 12:14) RASH penicillin G Allergy (Unknown, Verified 03/29/24 12:14) Unknown Do you need a note to return to daycare/school/sports/work: No HPI HPI Comments History of Present Illness Details 74-year-old female with a concern for a UTI, c/o pressure, burning and constantly feeling like she has to urinate. Denies fevers, low back pain, or abdomina pain. Hasn't had a uti in many years but used to get them a lot. [facility] Medical History Adrenal adenoma Surgical History Hx of right knee surgery Social History Housing: House Patient Tobacco Use Status: Never used Tobacco e-Cigarette/Vaping Use: Never Used Second Hand Smoke Exposure: No service: No Current occupational status: retired Current occupational exposures/hazards: No Cognitive needs: No Hearing needs: No Vision needs: No Review of Systems Const All systems reviewed & are unremarkable except as noted in HPI and below Physical Exam Vital Signs: Last Vital Signs Temp 97.6 F 03/29/24 12:14 Pulse 87 03/29/24 12:14 BP 122/80 03/29/24 12:14 Pulse Ox 96 03/29/24 12:14 Oxygen Delivery Method Room Air 03/29/24 12:14 BMI result Body Mass Index 29.5 Const General: cooperative, healthy appearing, comfortable and no acute distress Orientation/consciousness: patient oriented x3 HEENT Head: Yes normal to inspection Ears: hearing grossly normal bilaterally General nose exam: Normal external nose present Face and sinus: Yes normal facial exam Neck Neck: Yes normal visual inspection, Yes trachea midline and Yes supple Resp Effort & Inspection: normal respiratory effort and able to speak in complete sentences Skin General skin exam: no rashes or lesions noted Neuro General: patient oriented x3 Psych Appearance: grossly normal Speech and movement: Normal speech and movement present Attitude: cooperative Thought process: Normal thought process present Insight: Good insight present (Psych) Judgement: Good judgement present (Psych) Results AMB Urinalysis, Automated UA Leukoctes 70 Haylie/uL Last Edit by Shena Sharp [facility] on 03/29/24 12:2 9 UA Nitrite Negative Last Edit by Shena Sharp [facility] on 03/29/24 12:29 UA Urobilinogen 0.2 mg/dL Last Edit by Shena Sharp [facility] on 03/29/24 12:29 UA Protein 0 mg/dL Last Edit by Shena Sharp [facility] on 03/29/24 12:29 UA pH 6.0 Last Edit by Shena Sharp [facility] on 03/29/24 12:29 UA Blood 0 Castillo/uL Last Edit by Shena Sharp [facility] on 03/29/24 12:29 UA Specific [place] 1.010 Last Edit by Shena Sharp [facility] on 03/29/24 12:29 UA Ketone Negative Last Edit by Shena Sharp [facility] on 03/29/24 12:29 UA Bilirubin 0 mg/dL Last Edit by Shena Sharp [facility] on 03/29/24 12:29 UA Glucose 0 mg/dL Last Edit by Shena Sharp [facility] on 03/29/24 12:29 Assessment & Plan Assessment & Plan (1) UTI (urinary tract infection): Code(s): N39.0 - Urinary tract infection, site not specified Qualifiers: Urinary tract infection type: acute cystitis Hematuria presence: without hematuria Qualified Code(s): N30.00 - Acute cystitis without hematuria Plan: 1+ leukocytes, negative nitrites and no blood in the urinalysis. Sent cefuroxime to pharmacy, we will send urine culture and advised patient if we need to change the antibiotic that we will call her. Advised she would need to stop taking her Pepcid while she is taking cefuroxime, recommended she add an comes if needed. Patient states her diet has improved and she likely does not need the need the Pepcid anymore. Orders: Orders AMB Urinalysis Automated Today Z13.9 - Encounter for screening, unspecified Urine Culture Today N39.0 - Urinary tract infection, site not specified Medications: New cefuroxime axetil 500 mg PO Q12H 14 tabs 0RF Coding Level of Care Code Est Pt Level 3 (92654) Diagnoses Acute cystitis without hematuria N30.00 Urinary tract infection type: acute cystitis Hematuria presence: without hematuria
[2024-03-29 12:14] VITALS: BP 122/80; PULSE 87; TEMP 36.4; O2SAT 96; BMI 29.5
== END 2024-03-29 13:13 | disposition home or self-care (01) ==
PROVIDERS: PCP Nurse Practitioner Family; Visit Provider Physician Assistant
DX: N30.00 Acute cystitis without hematuria (principal); Z13.9 Encounter for screening, unspecified

== ENCOUNTER 2024-05-16 07:50 | Outpatient (AMB) | payer MEDICARE, SELFPAY ==
--- OUTSIDE RECORDS SUMMARY | 2024-05-16 07:54 | XMS_ITS | Encounter Summary ---
Author Organization [facility] Address [address] [facility] [address] [place] [address] Phone Care Team Providers Care Photographer Finish Name Role Phone Levar Pritchard NP Primary Care Provider [phone] Encounter Details Date Type Department Care Team (Late st Contact Info) Description 07/17/2021 Documentation Only [facility] [address] [facility] [address] [place] [address] Yair Quintana MD Social History Tobacco Use Types Packs/Day Years Used Date Smoking Tobacco: Never Smokeless Tobacco: Never Alcohol Use Standard Drinks/Week Comments Never 0 (1 standard drink = 0.6 oz pur e alcohol) Comments Unknown Sex and Gender Information Value Date Recorded Sex Assigned at Not on file Legal Sex Female 4:58 PM EST Gender Identity Not on file Sexual Orientation Not on file documented as of this encounter Plan of Treatment Upcoming Encounters Date Type Department Care Team (Late st Contact Info) Description 01/14/2025 1:45 PM EST Office Visit [facility] [address] [facility] [address] [place] [phone] Teddy Angulo MD [address] [facility] [facility] [place] [phone] documented as of this encounter Visit Diagnoses Not on filedocumented in this encounter Care Teams Photographer Finish Relationship Specialty Start Date End Date Levar Pritchard NP [address] [place] [address] PCP - General Nurse Practitioner 11/23/21 documented as of this encounter
--- OUTSIDE RECORDS SUMMARY | 2024-05-16 07:54 | XMS_ITS | Encounter Summary ---
Author Organization [facility] Address [address] [facility] [address] [place] [address] Phone Care Team Providers Care Yeast Pumper Name Role Phone Levar Pritchard NP Primary Care Provider [phone] Encounter Details Date Type Department Care Team (Late st Contact Info) Description 07/10/2021 Documentation Only [facility] [address] [facility] [address] [place] [address] Yair Quintana MD Social History [...] Visit [facility] [address] [facility] [address] [place] [phone] Teddy Angulo MD [address] [facility] [address] [place] [phone] documented as of this encounter Visit Diagnoses Not on filedocumented in this encounter Care Teams Yeast Pumper Relationship Specialty Start Date End Date Levar Pritchard NP [address] [place] [address] PCP - General Nurse Practitioner 11/23/21 documented as of this encounter
--- OUTSIDE RECORDS SUMMARY | 2024-05-16 07:54 | XMS_ITS | Encounter Summary ---
Author Organization [facility] Address [address] [facility] [address] [place] [address] Phone Care Team Providers Care Piggery Worker Name Role Phone Levar Pritchard NP Primary Care Provider [phone] Encounter Details Date Type Department Care Team (Late Contact Info) Description 06/26/2020 Orders Only [facility] [address] [facility] [address] [place] [phone] Yair Quintana MD Essential hypertension Social History Tobacco Use Types Packs/Day Years Used Date Smoking Tobacco: Never Smokeless Tobacco: Never Alcohol Use Standard Drinks/Week Comments Never 0 (1 standard drink = 0.6 oz pur e alcohol) Comments Unknown Sex and Gender Information Value Date Recorded Sex Assigned at Not on file Legal Sex Female 4:58 PM EST Gender Identity Not on file Sexual Orientation Not on file COVID-19 Exposure Response Date Recorded In the last month, have you been in contact with someone who was confirmed or suspected to have Coronavirus / COVID-19? No / Unsure 06/27/2020 10:57 AM EDT documented as of this encounter Plan of Treatment Upcoming Encounters Date Type Department Care Team (Late st Contact Info) Description 01/14/2025 1:45 PM EST Office Visit [facility] [address] [facility] [address] [place] [address] Teddy Angulo MD [address] [facility] [address] [place] [address] documented as of this encounter Procedures Procedure Name Priority Date/Time Associated Diagnosis Comments RENAL FUNCTION PANEL Routine 06/17/2020 7:51 AM EDT Essential hypertension documented in this encounter Results * Renal function panel (06/17/2020 7:51 AM EDT) [facility] Glucose 93 (70-99) MG/DL [facility] BUN 18 (8-23) MG/DL [facility] Creatinine 0.9 (0.5-1.0) MG/DL [facility] Sodium 141 (133-145) MMOL/L [facility] Potassium 4.6 (3.6-5.2) MMOL/L [facility] Chloride 104 (98-107) MMOL/L [facility] Bicarbonate (CO2) 27 (22-29) MMOL/L [facility] Anion Gap 10 (4-17) [facility] Albumin 4.6 (3.4-4.8) GM/DL [facility] Calcium 10.2 (8.6-10.5) MG/DL [facility] Phosphorus, Serum 3.6 (2.5-4.5) MG/DL [facility] Est GFR Non 65 ML/MIN/1.7 3 M2 [facility] Comment: Creatinine based estimated glomerular filtration rate (eGFR) is calculated using the Chronic Kidney Disease Epidemiology Collaboration (CKD-EPI). The CKD-EPI creatinine equation has not been validated in children (<18 years), women or in some racial or ethnic subgroups other than Caucasians and Americans. EST GFR 75 ML/MIN/1.7 3 M2 [facility] Comment: Creatinine based estimated glomerular filtration rate (eGFR) is calculated using the Chronic Kidney Disease Epidemiology Collaboration (CKD-EPI). The CKD-EPI creatinine equation has not been validated in children (<18 years), women or in some racial or ethnic subgroups other than Caucasians and Americans. Testing performed or reported by [facility], a Service of [facility], [address] [place] [id number] Negar Ledezma MD, Flat Finisher Blood (Blood, Venous) 06/17/2020 7:51 AM EDT 06/17/2020 8:03 AM EDT us Yair Quintana MD LAB BLOOD ORDERABLES Final Resul t [facility] documented in this encounter Visit Diagnoses Diagnosis Essential hypertension documented in this encounter Care Teams Piggery Worker Relationship Specialty Start Date End Date Levar Pritchard NP [address] [place] [address] PCP - General Nurse Practitioner 11/23/21 documented as of this encounter
--- OUTSIDE RECORDS SUMMARY | 2024-05-16 07:54 | XMS_ITS | Encounter Summary ---
Author Organization [facility] Address [address] [facility] [address] [place] [address] Phone Care Team Providers Care Tele Marketing Executive Name Role Phone Levar Pritchard NP Primary Care Provider [phone] Reason for Visit * Reason Comments Med Refill Encounter Details Date Type Department Care Team (Late st Contact Info) Description 12/25/2022 Refill [facility] [address] [facility] [address] [place] [address] Yair Quintana MD Social History [...] [facility] [address] [phone] Teddy Angulo MD [address] [address] documented as of this encounter Visit Diagnoses Not on filedocumented in this encounter Care Teams Tele Marketing Executive Relationship Specialty Start Date End Date Levar Pritchard NP [facility] [place] [address] PCP - General Nurse Practitioner 11/23/21 documented as of this encounter
--- OUTSIDE RECORDS SUMMARY | 2024-05-16 07:54 | XMS_ITS | Clinical Summary ---
Author Organization [facility] Address [address] [address] Phone Care Team Providers Care Vp Cardiovascular Name Role Phone Levar Pritchard NP Primary Care Provider [phone] Allergies Active Allergy Reactions Criticality Noted Date Comments Ciprofloxacin Other (see comments) 05/21/2020 Penicillin G Other (see comments) 05/21/2020 Medications Cholecalciferol 50 MCG (1999) capsule Take 1 capsule by mouth 1 (one) time each day Active famotidine (PEPCID) 20 MG tablet Take 1 tablet by mouth 2 (two) times a day Active fluticasone (FLONASE) 50 MCG/ACT nasal spray Active ibandronate (BONIVA) 150 MG tablet Take 1 tablet by mouth 1 (one) time each day 04/01/2020 Active loratadine (CLARITIN) 10 MG tablet Take 1 tablet by mouth 1 (one) time each day Active rosuvastatin (CRESTOR) 10 MG tablet Take 1 tablet by mouth 1 (one) time each day 10/21/2021 Active losartan (COZAAR) 25 MG tablet Take 1 tablet (25 mg total) by mouth 1 (one) time each day 90 tablet 3 01/02/2024 5 Active Active Problems Problem Noted Date Diagnosed Date Osteoarthritis 11/20/2021 Abnormal chest sounds 11/20/2021 Overview (11/20/2021): h/o ILD pattern on CT 2011. thought to be viral at that time. pt is asx Adrenal adenoma 11/20/2021 Atrophic vaginitis 11/20/2021 CT of chest abnormal 11/20/2021 Gastroesophageal reflux disease 11/20/2021 Hepatic fibrosis 11/20/2021 Osteoporosis 11/20/2021 Hypertension 02/19/2021 Essential hypertension 05/21/2020 Allergic rhinitis 09/28/2012 Encounters Date Type Department Care Team Description 02/21/2024 Orders Only [facility] [address] [phone] Teddy Angulo MD from Last 3 Months Immunizations Name Administration Dates Next Due Hepatitis A 04/26/2012,09/27/2011 Hepatitis B 04/26/2012,10/27/2011,09/27/2011 Influenza Whole 01/31/2012,12/14/2010,05/02/2009 Pfizer SARS-COV-2 12/26/2020,06/18/2020,05/29/19 21 Pneumococcal Conjugate 13-Valent 12/09/2014 Pneumococcal Polysaccharide 10/05/2013 Td, Unspecified 05/02/2006 Family History Medical History Relation Comments Kidney disease Father Had ESRD X 13 ye ars Kidney disease Sibling Renal Stones Relation Status Comments Father Sibling Social History Tobacco Use Types Packs/Day Years Used Date Smoking Tobacco: Never Smokeless Tobacco: Never Alcohol Use Standard Drinks/Week Comments Never 0 (1 standard drink = 0.6 oz pur e alcohol) Comments Unknown Sex and Gender Information Value Date Recorded Sex Assigned at Not on file Legal Sex Female 4:58 PM EST Gender Identity Not on file Sexual Orientation Not on file Last Filed Vital Signs Vital Sign Reading Time Taken Comments Blood Pressure 130/78 01/16/2024 1:26 PM EST Pulse 89 01/16/2024 1:26 PM EST Temperature - - Respiratory Rate - - Oxygen Saturation 98% 01/13/2023 1:49 PM EDT Inhaled Oxygen Concentration - - Weight 68 kg (150 lb) 01/16/2024 1:26 PM EST Height - - Body Mass Index - - Plan of Treatment Upcoming Encounters Date Type Department Care Team (Late st Contact Info) Description 01/14/2025 1:45 PM EST Office Visit [facility] [address] [address] Teddy Angulo MD [address] [address] Health Maintenance Due Date Last Done Comments Influenza Vaccine (#1) 2023 2, 12/14/2010, 05/02/2009 Hepatitis B Vaccine Aged Out 04/26/2012, 10/27/2011, 09/27/2011 No longer eligible based on patient's age to complete this topic Pneumococcal Vaccine: 65+ Years Completed 12/09/2014, 10/05/2013 Procedures Procedure Name Priority Date/Time Associated Diagnosis Comments CALCIUM Routine 02/21/2024 10:23 AM EST CREATININE, BLOOD Routine 02/21/2024 10: 23 AM EST BUN Routine 02/21/2024 10:23 AM EST ELECTROLYTE PANEL Routine 02/21/2024 10: 23 AM EST from Last 3 Months Results * Creatinine (02/21/2024 10:23 AM EST) Creatinine Serum 0.90 0.5 - 1.4 mg/dL See order comments eGFR >60 See order comments Comment: Chronic Kidney Disease: ??Estimated GFR < 60 mL/min/1.73m2 Severe Kidney Disease: ??Estimated GFR < 15 mL/min/1.73m2 02/21/2024 10:2 3 AM EST 02/21/2024 10:23 AM EST us Teddy Angulo MD LAB BLOOD ORDERABLES Final Resul t Performing Organization Address City/State/[facility] Co de Phone Number [place] See order [place] [address] * BUN (02/21/2024 10:23 AM EST) BUN 13 9 - 16 mg/dL See order comments 02/21/2024 10:2 3 AM EST 02/21/2024 10:23 AM EST us Teddy Angulo MD LAB BLOOD ORDERABLES Final Resul t Performing Organization Address City/State/[facility] Co de Phone Number [place] See order comments [place] [address] * Calcium (02/21/2024 10:23 AM EST) Calcium 9.6 8.4 - 10.2 mg/dL See order comments 02/21/2024 10:2 3 AM EST 02/21/2024 10:23 AM EST us Teddy Angulo MD LAB BLOOD ORDERABLES Final Resul t Performing Organization Address [facility] Co de Phone Number [place] See order comments [place] [address] * Electrolyte panel (02/21/2024 10:23 AM EST) Sodium 145 135 - 145 mmol/L See order comments Potassium 4.5 3.3 - 5.1 mmol/L See order comments Chloride 107 96 - 108 mmol/L See order comments Bicarbonate (CO2) 27 22 - 29 mmol/L See order comments Anion Gap 16 12 - 20 See order comments 02/21/2024 10:2 3 AM EST 02/21/2024 10:23 AM EST us Teddy Angulo MD LAB BLOOD ORDERABLES Final Resul t Performing Organization Address [facility] Co de Phone Number [place] See order comments [place] [address] from Last 3 Months Insurance [facility] Care Teams Vp Cardiovascular Relationship Specialty Start Date End Date Levar Pritchard NP [facility] [place] [address] PCP - General Nurse Practitioner 11/23/21
--- NOTE | 2024-05-16 07:56 | MHC.PC.OV ---
Vital Signs 05/16/24 07:58 Height 4 ft 11 in Weight 149 lb BMI 30.1 BP 122/80 Blood Pressure Location Lt brachial Position Sitting Respiration 16 Pulse 82 Pulse Source Pulse Oximeter Temp 97.7 F Temp Source Oral Pulse Oximetry (%) 96 Oxygen Delivery Method Room Air Intake Visit Reasons: ANNUAL PE Intake Note: Pt is here today for her PE Allergies ciprofloxacin [From CIPRO] Allergy (Intermediate, Verified 05/16/24 08:45) JOINT PAIN codeine [CODEINE] Allergy (Mild, Verified 05/16/24 08:45) LOOPY Penicillins Allergy (Mild, Verified 05/16/24 08:45) RASH penicillin G Allergy (Unknown, Verified 05/16/24 08:45) Unknown Medication List - Last Reconciled 05/16/24 by AMOR Bower- albuterol sulfate 90 mcg/actuation 2 puffs inhalation Q6H PRN cholecalciferol (vitamin D3) 50 mcg PO DAILY 90 days fluticasone propionate 50 mcg/actuation (Flonase Allergy Relief) 1 spray intranasal DAILY PRN ibandronate 150 mg PO .Q month 90 days loratadine (Claritin) 10 mg PO DAILY losartan 25 mg PO DAILY meloxicam 7.5 mg PO DAILY rosuvastatin 10 mg PO DAILY 90 days Tobacco use date assessed: 05/16/24 Fall risk assessment: No Falls in past year Last assessed Fall Risk: 05/16/24 Dental Screening Dental Screen Date: 05/16/24 Did you have a dental visit in the last 12 months?: Yes Did you have a dental problem in the last 6 months where you did not have access to dental care?: No Was dental information given to patient?: Patient has dentist HPI ANNUAL PE HPI Details History of Present Illness The patient is a 74-year-old female presenting for a routine physical examination. She has a known history of osteoporosis and reports no significant changes in her condition. She denies experiencing any acute complaints such as chest pain, dyspnea, gastrointestinal or urinary symptoms. Her health screenings, including mammogram and colon screen, are current. The patient is doing well and reports no concerns at this time. Health Maintenance - Mammogram is up to date. - Cologuard is up to date. - Scheduled for a repeat bone density scan next year. Social History Review of Systems - Cardiovascular: Denies chest pain. - Respiratory: Denies shortness of breath. - Gastrointestinal: Denies blood in stool, constipation, diarrhea. - Genitourinary: Denies urinary issues. - Neuropsychiatric: Denies suicidal or homicidal ideation. Physical Exam General: Cooperative, healthy appearing, comfortable, no acute distress and well developed Orientation: Patient oriented x3 Limitations: No limitations Head: Normal to inspection Ears: Hearing grossly normal bilaterally Nose: Normal external nose present Face and sinus: Normal facial exam Eyes: Appearance normal, both eyes and all related structures Neck: Normal visual inspection and Yes full ROM Respiratory: Normal respiratory effort and able to speak in complete sentences. Clear to auscultation bilaterally Cardiovascular: Regular rate and rhythm. Normal S1 and S2 GI: Normal to inspection. Soft to palpation and nontender Skin: No rashes or lesions noted Neuro: Patient oriented x3 Extremities: Normal to inspection Results Plan The patient attended for a routine physical examination with a follow-up for osteoporosis. No immediate interventions are necessary as her condition is stable, with a bone density evaluation scheduled for the upcoming year to assess osteoporosis progression. Preventative screenings are current, with no new symptomatic concerns requiring additional diagnostic work-up. The patient will maintain her current health management plan with reassessment during her next visit or sooner if needed. Discussion Notes During this visit, I reviewed the patient's current health status and focused on her longstanding condition of osteoporosis. We discussed her upcoming bone density test scheduled for the following year. We also reviewed her current screening status, including her mammogram and colon screen, which are both up to date. I provided guidance to continue with current management and reassured her that her overall health status appears stable. We agreed that her current plan will remain unless any new developments occur. Patient Instructions - Continue current health management plan. - Attend the scheduled bone density scan next year. - Return for a routine check-up or sooner if new symptoms appear. - Maintain a healthy lifestyle and report any concerns. -fasting labs ordered [facility] Medical History Adrenal adenoma Surgical History Hx of right knee surgery Social History Housing: House Patient Tobacco Use Status: Never used Tobacco e-Cigarette/Vaping Use: Never Used Second Hand Smoke Exposure: No service: No Current occupational status: retired Current occupational exposures/hazards: No Cognitive needs: No Hearing needs: No Vision needs: Yes Questionnaire Thrive Questionnaire Date Thrive assessed: 05/16/24 I am a: Patient What is your living situation today?: I have a steady place to live Within the past 12 months, did the food you bought not last and you didn't have the money to get more?: I choose not to answer this question Within the past 12 months, did you worry whether your food would run out before you got money to buy more?: I choose not to answer this question Do you have trouble paying for medicines?: I choose not to answer this question Do you have trouble getting transportation to medical appointments?: I choose not to answer this question Do you have trouble paying your heating and electricity bill?: I choose not to answer this question Do you have trouble taking care of your child, family member or friend?: I choose not to answer this question Do you have trouble with day-to-day activities such as bathing, preparing meals, shopping, managing finances, etc.?: I choose not to answer this question Are you currently unemployed and looking for a job?: I choose not to answer this question Are you interested in more education?: I choose not to answer this question Please select the resources that you would like help with: None THRIVE Score: 0 JAHAIRA-7 AMB Questionnaire JAHAIRA-7 Date JAHAIRA - 7 assessed: 05/16/23 Source: Developed by Drs. Pete Gomez, Yolette Beltran, Jah Tapia and colleagues, with an educational pilar from [employer]. Physical exam (Primary Care) Vital Signs: Last Vital Signs Temp 97.7 F 05/16/24 07:58 Pulse 82 05/16/24 07:58 Resp 16 05/16/24 07:58 BP 122/80 05/16/24 07:58 Pulse Ox 96 05/16/24 07:58 Oxygen Delivery Method Room Air 05/16/24 07:58 BMI result Body Mass Index 30.1 Tobacco/Smoking Status: Tobacco use Status Tobacco use date assessed 05/16/24 05/16/24 07:57 Patient Tobacco Use Status Never used Tobacco 05/16/24 07:57 e-Cigarette/Vaping Use Never Used 05/16/24 07:57 Thrive Assessment: Date of Thrive Assessment Date Thrive assessed 05/16/24 05/16/24 07:57 Coding Level of Care Code Est Pt Prev Care >65y(61847) Diagnoses Physical exam Z00. Vitamin D deficiency E55.9 Assessment & Plan Assessment & Plan (1) Physical exam: Code(s): Z00.00 - Encounter for general adult medical examination without abnormal findings Category: Medical (2) Vitamin D deficiency: Code(s): E55.9 - Vitamin D deficiency, unspecified Category: Medical Plan . Orders: Orders Complete Blood Count Auto Diff Today Z00.00 - Encounter for general adult medical examination without abnormal findings Comprehensive [place]. Panel Fast Today Z00.00 - Encounter for general adult medical examination without abnormal findings TSH reflex Free T4 Today Z00.00 - Encounter for general adult medical examination without abnormal findings UA CC w/rflx Micro + Cult Today Z00.00 - Encounter for general adult medical examination without abnormal findings Lipid Panel Today Z00.00 - Encounter for general adult medical examination without abnormal findings Vitamin D 25-OH Total Today E55.9 - Vitamin D deficiency, unspecified Referrals Cologuard Test Z12.11 - Encounter for screening for malignant neoplasm of colon, Z12.12 - Encounter for screening for malignant neoplasm of rectum
[2024-05-16 07:58] VITALS: BP 122/80; PULSE 82; RESP 16; TEMP 36.5; O2SAT 96; BMI 30.1
== END 2024-05-16 08:56 | disposition home or self-care (01) ==
PROVIDERS: PCP Nurse Practitioner Family; Visit Provider Nurse Practitioner Family
DX: Z00.00 Encounter for general adult medical examination without abnormal findings (principal); E55.9 Vitamin D deficiency, unspecified

== ENCOUNTER → 2024-05-16 07:50 | Outpatient (BNVA) | payer MEDICARE, SELFPAY | PROVIDERS: PCP Nurse Practitioner Family; Visit Provider Nurse Practitioner Family | DX: Z00.00 Encounter for general adult medical examination without abnormal findings (principal); E55.9 Vitamin D deficiency, unspecified | CPT/HCPCS: 99397 ==

== ENCOUNTER 2024-11-11 09:29 | Emergency (ER) | payer MEDICARE, SELFPAY ==
--- NOTE | 2024-11-11 09:32 | ECG_ITS ---
Test Reason : CP Blood Pressure : */* mmHG Vent. Rate : 96 BPM Atrial Rate : 96 BPM P-R Int : 130 ms QRS Dur : 74 ms QT Int : 340 ms P-R-T Axes : 21 -20 15 degrees QTcB Int : 429 ms Normal sinus rhythm Normal ECG When compared with ECG of 08-Sep-2019 10:39, No significant change was found Referred By: Generic ED Physician Electronically Signed By: JASE DEL ANGEL MD
[2024-11-11 09:37] VITALS: BP 144/67; PULSE 91; RESP 18; TEMP 36.6; O2SAT 97; BMI 31.1
--- OUTSIDE RECORDS SUMMARY | 2024-11-11 09:55 | XMS_ITS | Encounter Summary ---
Author Organization [facility] Address [address] [facility] [address] [place] [address] Phone Care Team Providers Care Editorial Writer Name Role Phone Levar Pritchard NP Primary Care Provider [phone] Encounter Details Date Type Department Care Team (Late Contact Info) Description 06/26/2020 Orders Only [facility] [address] [facility] [address] [place] [phone] Yair Quintana MD Essential hypertension Social History [...] [facility] [address] [facility] [address] [place] [address] Teddy Angulo MD [address] [facility] [address] [place] [address] documented as of this encounter Procedures Procedure Name Priority Date/Time Associated Diagnosis Comments RENAL FUNCTION PANEL Routine 06/17/2020 7:51 AM EDT Essential hypertension documented in this encounter Results * Renal function panel (06/17/2020 7:51 AM EDT) Pathologist [facility] Glucose 93 (70-99) MG/DL [facility] BUN 18 (8-23) MG/DL [facility] Creatinine 0.9 (0.5-1.0) MG/DL [facility] Sodium 141 (133-145) MMOL/L [facility] Potassium 4.6 (3.6-5.2) MMOL/L [facility] Chloride 104 (98-107) MMOL/L [facility] Bicarbonate (CO2) 27 (22-29) MMOL/L [facility] Anion Gap 10 (4-17) [facility] Albumin 4.6 (3.4-4.8) GM/DL [facility] Calcium 10.2 (8.6-10.5) MG/DL [facility] Phosphorus, Serum 3.6 (2.5-4.5) MG/DL [facility] Est GFR Non 65 ML/MIN/1.7 3 M2 [facility] Comment: Creatinine based estimated glomerular filtration rate (eGFR) is calculated using the Chronic Kidney Disease Epidemiology Collaboration (CKD-EPI). The CKD-EPI creatinine equation has not been validated in children (<18 years), women or in some racial or ethnic subgroups other than Caucasians and Americans. EST GFR 75 ML/MIN/1.7 3 M2 [facility] Comment: Creatinine based estimated glomerular filtration rate (eGFR) is calculated using the Chronic Kidney Disease Epidemiology Collaboration (CKD-EPI). The CKD-EPI creatinine equation has not been validated in children (<18 years), women or in some racial or ethnic subgroups other than Caucasians and Americans. Testing performed or reported by [facility], a Service of [facility], [address] [place] [address] Negar Ledezma MD, Clerical Support Specialist Blood specimen (specimen) Venous blood / Unknown 06/17/2020 7:51 AM EDT 06/17/2020 8:03 AM EDT us Yair Quintana MD LAB BLOOD ORDERABLES Final Resul t [facility] documented in this encounter Visit Diagnoses Diagnosis Essential hypertension documented in this encounter Care Teams Editorial Writer Relationship Specialty Start Date End Date Levar Pritchard NP [address] [place] [address] PCP - General Nurse Practitioner 11/23/21 documented as of this encounter
--- OUTSIDE RECORDS SUMMARY | 2024-11-11 09:56 | XMS_ITS | Encounter Summary ---
Author Organization [facility] [place] Address [address] [facility] [address] [place] [address] Phone Care Team Providers Care Telephone Supervisor Name Role Phone Levar Pritchard NP Primary Care Provider [phone] Encounter Details Date Type Department Care Team (Late st Contact Info) Description 07/17/2021 Documentation Only [facility] [address] [facility] [address] [place] [address] Yair Quintana MD Social History [...] Visit [facility] [address] [phone] Teddy Angulo MD [address] [facility] [address] [place] [phone] documented as of this encounter Visit Diagnoses Not on filedocumented in this encounter Care Teams Telephone Supervisor Relationship Specialty Start Date End Date Levar Pritchard NP [address] [place] [address] PCP - General Nurse Practitioner 11/23/21 documented as of this encounter
--- OUTSIDE RECORDS SUMMARY | 2024-11-11 09:56 | XMS_ITS | Clinical Summary ---
Author Organization [facility] Address [address] [address] Phone Care Team Providers Care Residential Carpenter Name Role Phone Levar Pritchard NP Primary Care Provider Allergies Active Allergy Reactions Criticality Noted Date [...] 10/21/2021 Active losartan (COZAAR) 25 MG tablet TAKE 1 TABLET BY MOUTH 1 TIME EACH DAY. 90 tablet 3 10/08/2024 Active Active Problems Problem Noted Date Diagnosed [...] Encounters Date Type Department Care Team Description 10/08/2024 Refill [facility] [address] [phone] Teddy Angulo MD from Last 3 Months Immunizations Immunization Administration Dates Next Due Hepatitis A 04/26/2012,09/27/2011 [...] Office Visit [facility] [address] [phone] Teddy Angulo MD [address] [phone] Health Maintenance Due Date Last Done Comments Influenza Vaccine (#1) 2024 2, 12/14/2010, 05/02/2009 Hepatitis B Vaccine Aged Out 04/26/2012, 10/27/2011, 09/27/2011 No longer eligible based on patient's age to complete this topic Pneumococcal Vaccine: 50+ Years Completed 12/09/2014, 10/05/2013 Pneumococcal Vaccine: Peds (0 to 5 Years) and At-Risk Patients (6 to 49 Years) Discontinued 12/09/2014, 10/05/2013 Insurance [facility] Care Teams Residential Carpenter Relationship Specialty Start Date End Date Levar Pritchard NP [facility] [place] [address] PCP - General Nurse Practitioner 11/23/21
--- OUTSIDE RECORDS SUMMARY | 2024-11-11 09:56 | XMS_ITS | Encounter Summary ---
Author Organization [facility] [place] Address [address] [facility] [facility] [address] [place] [address] Phone Care Team Providers Care Sheet Metal Former Name Role Phone Levar Pritchard NP Primary Care Provider [phone] Encounter Details Date Type Department Care Team (Late st Contact Info) Description 07/10/2021 Documentation Only [facility] [address] [facility] [address] [place] [address] Yair Quintana MD Social History [...] Visit [facility] [address] [phone] Teddy Angulo MD [address] [facility] [address] [place] [phone] documented as of this encounter Visit Diagnoses Not on filedocumented in this encounter Care Teams Sheet Metal Former Relationship Specialty Start Date End Date Levar Pritchard NP [address] [place] [address] PCP - General Nurse Practitioner 11/23/21 documented as of this encounter
--- OUTSIDE RECORDS SUMMARY | 2024-11-11 09:56 | XMS_ITS | Patient Health Record ---
Author Organization [facility] [place] Address [address] [facility] [place] [address] Care Team Providers Care Awning Hanger Supervisor Name Role Phone Jesse Bryant MD Primary Care Provider Unavailab Mikala Miller Unavailable [phone] Allergies Allergen (clinical drug ingredient) Drug/Non Drug Allergy documented on EMR Reaction Allergy Type Onset Date Status Information temporarily unavailable Amoxicillin rash Drug Allergy Active Information temporarily unavailable Cipro Unknown Drug Allergy Active Reason For Referral No Information Medications Medication SIG (Take, Route, Frequency, Duration) Notes Start Date End Date Status ASO Ankle/Foot Stablizing AFO As directed Wear Daily; Duration: as needed 10/03/2018 Active Claritin Active Zantac 150 Maximum Strength Active Flonase Active Social History Tobacco Use: Social History Observation Description Date Details (start date - stop date) Never Smoker NA - NA Tobacco Use/Smoking Question Answer Notes Are you a: nonsmoker Additional Findings: Tobacco Non-User Current no n-smoker Alcohol Screen Question Answer Notes Did you have a drink containing alcohol in the p ast year? No Points 0 Interpretation Negative Tobacco use other than smoking: Question Answer Notes Are you an other tobacco user? 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 Plan Of Treatment Pending Test Test Name Order Date X ray : Foot, right 3V 10/03/2018 X ray : Ankle, right 3V 10/03/2018 Insurance Providers Payer Name Payer Address Payer Phone Subscriber Number Group Number Insured Name Patient Relationship to Insured Coverage Start Date Coverage End Date [employer] 65 Medicare Preferred [address] [place] [address] [id number] Rocio Roland Self - patient is the insured 4 Medical (General) History Medical History History ICD Code Broken bones Hepatitis A Reflux ( GERD) Measles Chicken pox Joint implants/screws Surgical History Surgery Date(Month/Year) knee surgery 05/10/2018 Hardware removal from right knee 9
--- OUTSIDE RECORDS SUMMARY | 2024-11-11 09:56 | XMS_ITS | Encounter Summary ---
Author Organization [facility] Address 100 [facility] [address] [place] [address] Phone Care Team Providers Care Cytotechnologist Name Role Phone Levar Pritchard NP Primary Care Provider [phone] Reason for Visit * Reason Comments Med Refill Encounter Details Date Type Department Care Team (Late st Contact Info) Description 12/25/2022 Refill [facility] 100 [facility] [address] [place] [address] Yair Quintana MD Social History [...] of the [facility] [address] [phone] Teddy Angulo MD [address] [address] documented as of this encounter Visit Diagnoses Not on filedocumented in this encounter Care Teams Cytotechnologist Relationship Specialty Start Date End Date Levar Pritchard NP [facility] [place] [address] PCP - General Nurse Practitioner 11/23/21 documented as of this encounter
[2024-11-11 10:16] LABS: MANUAL DIFF FLAG NO
[2024-11-11 10:18] LABS: Hematocrit 40.5 % (37.0-47.0); Hemoglobin 13.9 g/dl (12.0-16.0); Imm Gran Abs Auto 0.02 X10*3/uL (0.00-0.03); Imm Gran Pct Auto 0.3 % (0.0-0.4); Lymphocytes Absolute Auto 1.6 X10*3/uL (1.2-4.9); Mean Corpuscular HGB Conc 34.3 g/dl (31.0-35.0); Mean Corpuscular Hemoglobin 30.8 pg (27.0-33.0); Mean Corpuscular Volume 89.8 fL (80.0-98.0); NRBC Abs Auto 0.000 X10*3/uL (0.0-0.012); NRBC Pct Auto 0.0 /100WBC (0.0-0.2); Platelet Count 256 X10*3/uL (160-400); Red Blood Count 4.51 X10*6/uL (4.20-5.50); White Blood Count 7.2 X10*3/uL (4.8-10.8)
[2024-11-11 10:33] LABS: Alanine Aminotransferase 24 U/L (0-31); Albumin Level 4.6 g/dL (3.5-5.0); Alkaline Phosphatase 66 U/L (39-117); Anion Gap 14 (12-20); Aspartate Amino Transferase 29 U/L (5-31); Blood Urea Nitrogen 16 mg/dL (9-16); Calcium 9.9 mg/dL (8.4-10.2); Carbon Dioxide 23 mmol/L (22-29); Chloride 108 mmol/L (96-108); Creatinine Clr Calc Pharmacy 49.3; Estimated Glomerular Filt Rate > 60; Lipase 21 U/L (8-78); Potassium 4.3 mmol/L (3.3-5.1); Sodium 141 mmol/L (135-145); Total Protein 7.6 g/dL (6.5-8.0)
[2024-11-11 10:41] LABS: Troponin-I High Sensitivity < 2.7 ng/L (<3.5-17.0)
[2024-11-11] MEDS: Lidocaine HCl Viscous 2 % 15 ML SOLUTION MUCOUS MEM (11:07)
[2024-11-11] MEDS: Magnesium Hydrox/Alum Hydrox 30 ML ORAL.SUSP PO (11:07)
--- NOTE | 2024-11-11 11:44 | ED_ITS ---
HPI - Chest Pain General Chief Complaint: Chest Pain Stated Complaint: chest pain Time Seen by Provider: 11/11/24 09:51 Source: patient, RN notes reviewed and old records reviewed Mode of arrival: ambulatory Limitations: no limitations History of Present Illness ED Provider: Merle HPI narrative: 74-year-old female with a past medical history significant for hypertension, GERD, hyperlipidemia presents for evaluation of chest pain. Patient reports that she was seated in taoism around 915 this morning when she had a sudden onset of burning her chest that radiates to her neck and jaw She does have a history of heartburn but states that she has never had burning in her chest or neck this bad in the past She denies any history of coronary artery disease. Denies any fevers, chills or coughing, shortness of breath. She does admit to ?clearing my throat a lot the eye was told this from heartburn. ? The clearing her throat is not a new development and has been going on for many years She denies any leg swelling The patient took some Pepcid prior to arrival that has not changed her symptoms Related Data Home Medications ?Medication ?Instructions ?Recorded ?Confirmed fluticasone propionate 50 1 spray intranasal DAILY PRN 07/15/21 05/16/24 mcg/actuation nasal spray,suspension (Flonase Allergy Relief) loratadine 10 mg tablet (Claritin) 10 mg PO DAILY 07/0305/16/24 losartan 25 mg tablet 25 mg PO DAILY 07/15/2108/05 Previous Rx's ?Medication ?Instructions ?Recorded albuterol sulfate 90 mcg/actuation 2 puff inhalation Q 6H PRN 12/15/22 aerosol inhaler shortness of breath or wheez ing #6.7 grams meloxicam 7.5 mg tablet 7.5 mg PO DAILY #20 tabs cholecalciferol (vitamin D3) 50 50 mcg PO DAILY 90 day s #90 caps 08/10/24 mcg (2,000 unit) capsule rosuvastatin 10 mg tablet 10 mg PO DAILY 90 days #90 t abs 08/13/24 ibandronate 150 mg tablet 150 mg PO .Q month 90 days # 3 tabs 09/20/24 aluminum-mag hydroxide-simethicone 10 ml PO QID PRN dy spepsia #3,000 11/11/24 200 mg-200 mg-20 mg/5 mL oral susp mL (Maalox Advanced) Allergies Allergy/AdvReac Type Severity Reaction Status Date / Time ciprofloxacin (From CIPRO) Allergy Intermediate JOINT PAIN Verified 11/11/24 09:39 codeine (CODEINE) Allergy Mild LOOPY Verified 11/11/24 09:39 Penicillins Allergy Mild RASH Verified 11/11/24 09:39 penicillin G Allergy Unknown Unknown Verified 11/11/24 09:39 Review of Systems 2 Constitutional: Constitutional: Denies body ache(s), Denies chills and Denies fever(s) Eyes: Eyes: Denies blurry vision ENT: Denies vertigo, Denies dizziness and Denies dry mouth Cardiovascular: Cardiovascular: Reports chest pain, Reports chest pain at rest and Denies dyspnea on exertion Respiratory: Respiratory: Denies cough and Denies dyspnea on exertion Gastrointestinal: Gastrointestinal: Denies abdominal pain, Denies nausea and Denies vomiting Musculoskeletal: Musculoskeletal: Denies back pain Integumentary/Breasts: Skin/Breast: Denies rash Neurologic: Denies vertigo and Denies dizziness Psychiatric: Psychiatric: Denies anxiety [facility] Past Medical History Medical History Adrenal adenoma Surgical History Hx of right knee surgery Social History Social History Housing: House Patient Tobacco Use Status: Never used Tobacco Smoked in Last 30 Days: No e-Cigarette/Vaping Use: Never Used Second Hand Smoke Exposure: No Use of substances other than those prescribed or required for medical reasons: No Advance Directives: Yes Advance Directives Information Provided: Yes Advance Directives on File: No service: No Current occupational status: retired Current occupational exposures/hazards: No Cognitive needs: No Hearing needs: No Vision needs: Yes Physical Exam 2 Vital Signs: Vital Signs: Last Vital Signs Temp 97.6 F 11/11/24 12:17 Pulse 84 11/11/24 12:17 Resp 16 11/11/24 12:17 BP 153/71 H 11/11/24 12:17 Pulse Ox 97 11/11/24 12:17 O2 Del Method Room Air 11/11/24 12:17 BMI result Body Mass Index 31.1 Const: General: healthy appearing, comfortable, no acute distress, alert and awake Nutritional Appearance: well nourished Orientation/consciousness: p atient oriented x3 HEENT: Head: Yes normocephalic and Yes atraumatic Eyes: Eyelids: Yes eyelids normal Conjunctivae: conjunctivae normal S clerae: sclerae normal Corneas: corneas normal Pupils: Equal, round and reactive pupils present EOM: EOMs intact bilaterally Neck: Neck: Yes full ROM Resp: Effort & Inspection: normal respiratory effort, able to speak in complete sentences and not labored Cardio: Rate: regular rate Rhythm: regular rhythm GI: Inspection: No distended Palpation (GI): Soft to palpation, not firm, nontender, no guarding and not rigid Skin: General skin exam: no rashes or lesions noted Neuro: General: patient oriented x3 Cranial nerves: Yes Equal, round and reactive pupils present and Yes Bilaterally intact EOM present Cognition (Neuro): normal cognition Course Reevaluation(s) Reevaluation #1: The patient's symptoms resolved completely with GI cocktail making GERD a much more likely diagnosis, we are still awaiting the repeat troponin to rule out ACS Time: 11:52 Medications Administered Discontinued Medications Generic Name Dose Route Start Last Admin Trade Name Freq PRN Reason Stop Dose Admin Al Hydroxide/Mg Hydroxide 30 ml 11/11/24 10:47 11/11/24 11:07 Magnesium Hydrox/Alum Hydrox 30 Ml Oral.Susp PO 11/11/24 10:48 30 ml ONCE ONE Administration Lidocaine HCl 15 ml 11/11/24 10:47 11/11/24 11:07 Lidocaine Hcl Viscous 2 % 15 Ml Solution MUCOUS MEM 11/11/24 10:48 15 ml ONCE ONE Administration Ondansetron HCl 4 mg 11/11/24 10:47 11/11/24 11:09 Ondansetron Odt 4 Mg Tab.Rapdis TRANSLINGU 11/11/24 10:48 4 mg ONCE ONE Administration Medical Decision Making Medical Decision Making [facility] Narrative: 74-year-old female with a past medical history as above presents for evaluation of burning chest pain that radiates to her neck. She does carry a history of GERD as described. In his possible that this is the cause her symptoms. Her EKG is normal sinus rhythm, nonischemic appearing. Initial labs are unremarkable including troponin is undetectable. I suspect her symptoms are related to GERD, however given her age and risk factors we will get a repeat troponin at the 3 hour mathew to truly rule out ACS. The patient has no respiratory symptoms, lungs are clear to auscultation will defer a chest x-ray at this time. She has no risk factors for PE and her symptoms are quite consistent with a PE. Differential Diagnosis Differential Diagnoses: The differential diagnosis associated with the presentation includes GERD Anxiety Chest pain ACS less likely Admission/Observation Consideration of admission/observation: Escalation of care including admission/observation considered Patient rules out for ACS in his stable for discharge. Lab Data 11/11/24 10:12 11/11/24 10:12 Labs: Lab Results 11/11/24 11/11/24 Range/Units 10:12 12:17 WBC 7.2 (4.8-10.8) X10*3/uL RBC 4.51 (4.20-5.50) X10*6/uL Hgb 13.9 (12.0-16.0) g/dl Hct 40.5 (37.0-47.0) % MCV 89.8 (80.0-98.0) fL MCH 30.8 (27.0-33.0) pg MCHC 34.3 (31.0-35.0) g/dl RDW 13.1 (11.0-16.0) % Plt Count 256 (160-400) X10*3/uL MPV 9.8 (9.4-12.3) fL Immature Gran % (Auto) 0.3 (0.0-0.4) % Neut % (Auto) 63.5 (45-73) % Lymph % (Auto) 22.2 (20-40) % Sully % (Auto) 9.4 (2-11) % Eos % (Auto) 3.9 (0-4) % Baso % (Auto) 0.7 (0-2) % Lymph # (Auto) 1.6 (1.2-4.9) X10*3/uL Sully # (Auto) 0.7 (0.1-1.2) X10*3/uL Eos # (Auto) 0.3 (0.0-0.4) X10*3/uL Baso # (Auto) 0.1 (0.0-0.2) X10*3/uL Abs Immat Gran (auto) 0.02 (0.00-0.03) X10*3/uL Absolute Neuts (auto) 4.6 (2.0-8.3) x10*3/uL Absolute Nucleated RBC 0.000 (0.0-0.012) X10*3/uL Nucleated RBC % (auto) 0.0 (0.0-0.2) /100WBC Sodium 141 (135-145) mmol/L Potassium 4.3 (3.3-5.1) mmol/L Chloride 108 (96-108) mmol/L Carbon Dioxide 23 (22-29) mmol/L Anion Gap 14 (12-20) BUN 16 (9-16) mg/dL Creatinine 0.79 (0.5-1.4) mg/dL Estim Creat Clear Calc 49.3 Estimated GFR > 60 Random Glucose 88 (60-115) mg/dL Calcium 9.9 (8.4-10.2) mg/dL Total Bilirubin 0.4 (0.0-1.0) mg/dL AST 29 (5-31) U/L ALT 24 (0-31) U/L Alkaline Phosphatase 66 (39-117) U/L Troponin I High Sens < 2.7 < 2.7 (<3.5-17.0) ng/L Total Protein 7.6 (6.5-8.0) g/dL Albumin 4.6 (3.5-5.0) g/dL Lipase 21 (8-78) U/L Discharge Plan Discharge Clinical Impression: Chest pain Patient Disposition: Home, Self-Care Instructions: Chest Pain (ED) Additional Instructions: Your workup in the ER today was reassuring. Your symptoms are most likely related to GERD. Continue taking your Pepcid. I did send a prescription for Maalox that you can use with meals to help with heartburn symptoms. Follow up with your doctor Prescriptions: New alum-mag hydroxide-simeth [Maalox Advanced] 200-200-20 mg/5 mL suspension 10 ml PO QID PRN (Reason: dyspepsia) Qty: 3000 0RF Rx Instructions: administer between meals and at bedtime No Action cholecalciferol (vitamin D3) 50 mcg (2,000 unit) capsule 50 mcg PO DAILY 90 Days Qty: 90 1RF rosuvastatin 10 mg tablet 10 mg PO DAILY 90 Days Qty: 90 1RF ibandronate 150 mg tablet 150 mg PO .Q month 90 Days Qty: 3 2RF meloxicam 7.5 mg tablet 7.5 mg PO DAILY Qty: 20 0RF losartan 25 mg tablet 25 mg PO DAILY loratadine [Claritin] 10 mg tablet 10 mg PO DAILY fluticasone propionate [Flonase Allergy Relief] 50 mcg/actuation spray,suspension 1 spray intranasal DAILY PRN Rx Instructions: administer into each nostril albuterol sulfate 90 mcg/actuation HFA aerosol inhaler 2 puff inhalation Q6H PRN (Reason: shortness of breath or wheezing) Qty: 6.7 0RF Print Language: Cameroonian
[2024-11-11 12:17] VITALS: BP 153/71; PULSE 84; RESP 16; TEMP 36.4; O2SAT 97
[2024-11-11 12:49] LABS: Troponin-I High Sensitivity < 2.7 ng/L (<3.5-17.0)
[2024-11-11 13:13] VITALS: BP 153/71; PULSE 84; RESP 16; TEMP 36.4; O2SAT 97
== END 2024-11-11 13:13 | disposition home or self-care (01) ==
PROVIDERS: Physician Assistant; Emergency Provider Emergency Medicine; PCP Nurse Practitioner Family
DX: R07.9 Chest pain, unspecified (principal); I10 Essential (primary) hypertension; K21.9 Gastro-esophageal reflux disease without esophagitis; Z79.899 Other long term (current) drug therapy
CPT/HCPCS: 36415; 80053; 83690; 84484; 85025; 93005; 99283; 99285

== ENCOUNTER → 2024-11-11 09:32 | Outpatient (BNV) | payer MEDICARE, SELFPAY | PROVIDERS: Emergency Provider Emergency Medicine; PCP Nurse Practitioner Family; Visit Provider Internal Medicine Cardiovascular Disease | DX: R07.9 Chest pain, unspecified (principal) | CPT/HCPCS: 93010 ==

== ENCOUNTER 2024-12-18 07:17 | Outpatient (REF) | payer MEDICARE, SELFPAY ==
[2024-12-18 10:22] LABS: MANUAL DIFF FLAG NO
[2024-12-18 10:23] LABS: Appearance Urine Clear; Glucose Urine UA Negative (Negative); PH 5.5 (5.0-9.0); Specific Gravity - Urine 1.015 (1.005-1.025); UMIC TRIGGER UACC YES
[2024-12-18 10:27] LABS: Hematocrit 41.8 % (37.0-47.0); Hemoglobin 13.7 g/dl (12.0-16.0); Imm Gran Abs Auto 0.01 X10*3/uL (0.00-0.03); Imm Gran Pct Auto 0.2 % (0.0-0.4); Lymphocytes Absolute Auto 1.5 X10*3/uL (1.2-4.9); Mean Corpuscular HGB Conc 32.8 g/dl (31.0-35.0); Mean Corpuscular Hemoglobin 30.4 pg (27.0-33.0); Mean Corpuscular Volume 92.7 fL (80.0-98.0); NRBC Abs Auto 0.000 X10*3/uL (0.0-0.012); NRBC Pct Auto 0.0 /100WBC (0.0-0.2); Platelet Count 240 X10*3/uL (160-400); Red Blood Count 4.51 X10*6/uL (4.20-5.50); White Blood Count 6.2 X10*3/uL (4.8-10.8)
[2024-12-18 10:39] LABS: UACC Culture Trigger YES
[2024-12-18 10:46] LABS: Alanine Aminotransferase 21 U/L (0-31); Albumin Level 4.5 g/dL (3.5-5.0); Alkaline Phosphatase 50 U/L (39-117); Anion Gap 11 (12-20); Aspartate Amino Transferase 26 U/L (5-31); Blood Urea Nitrogen 15 mg/dL (9-16); Calcium 9.3 mg/dL (8.4-10.2); Carbon Dioxide 27 mmol/L (22-29); Chloride 109 mmol/L (96-108); Cholesterol 145 mg/dL (<200); Estimated Glomerular Filt Rate > 60; HDL Cholesterol 56 mg/dL (>40); Potassium 4.2 mmol/L (3.3-5.1); Sodium 143 mmol/L (135-145); Total Protein 7.3 g/dL (6.5-8.0); Triglycerides 89 mg/dL (<150)
== END 2024-12-18 07:18 | disposition home or self-care (01) ==
LOC: HO.HMGCLDS 07:17
PROVIDERS: PCP Nurse Practitioner Family; Visit Provider Nurse Practitioner Family
DX: M25.551 Pain in right hip (principal); Z00.00 Encounter for general adult medical examination without abnormal findings; E55.9 Vitamin D deficiency, unspecified; Z13.6 Encounter for screening for cardiovascular disorders; Z13.29 Encounter for screening for other suspected endocrine disorder; Z13.0 Encounter for screening for diseases of the blood and blood-forming organs and certain disorders involving the immune mechanism
CPT/HCPCS: 36415; 80053; 80061; 81001; 82306; 84443; 85025; 87086; 99212

== ENCOUNTER 2024-12-18 07:17 | Outpatient (AMB) | payer MEDICARE, SELFPAY ==
--- OUTSIDE RECORDS SUMMARY | 2024-12-18 07:19 | XMS_ITS | Encounter Summary ---
Author Organization [facility] Address [address] [facility] [address] [place] [address] Phone Care Team Providers Care Switchman Supervisor Name Role Phone Levar Pritchard NP Primary Care Provider [phone] Encounter Details Date Type Department Care Team (Late st Contact Info) Description 07/17/2021 Documentation Only [facility] [address] [facility] [address] [place] [address] Yair Quintana MD Social History [...] Visit [facility] [address] [phone] Teddy Angulo MD [address] [facility] [address] [place] [phone] documented as of this encounter Visit Diagnoses Not on filedocumented in this encounter Care Teams Switchman Supervisor Relationship Specialty Start Date End Date Levar Pritchard NP [address] [place] [address] PCP - General Nurse Practitioner 11/23/21 documented as of this encounter
--- OUTSIDE RECORDS SUMMARY | 2024-12-18 07:19 | XMS_ITS | Encounter Summary ---
Author Organization [facility] Address [address] [facility] [address] [place] [address] Phone Care Team Providers Care Exhaust Emissions Inspector Name Role Phone Levar Pritchard NP Primary Care Provider Encounter Details Date Type Department Care Team (Late st Contact Info) Description 07/10/2021 Documentation Only [facility] [address] [facility] [facility] [address] [place] [address] Yair Quintana MD Social History [...] Visit [facility] [address] [phone] Teddy Angulo MD [address] [facility] [address] [place] [phone] documented as of this encounter Visit Diagnoses Not on filedocumented in this encounter Care Teams Exhaust Emissions Inspector Relationship Specialty Start Date End Date Levar Pritchard NP [address] [place] [address] PCP - General Nurse Practitioner 11/23/21 documented as of this encounter
--- OUTSIDE RECORDS SUMMARY | 2024-12-18 07:19 | XMS_ITS | Patient Health Record ---
Author Organization [facility] Address [address] [facility] [place] [address] Care Team Providers Care Housekeeping Lead Name Role Phone Jesse Bryant MD Primary Care Provider Mikala Danielson Unavailable [phone] Allergies Allergen (clinical drug ingredient) Drug/Non Drug Allergy documented on EMR Reaction Allergy Type Onset Date Status amoxicillin Amoxicillin rash Drug Allergy Act siddhartha ciprofloxacin Cipro Unknown Drug Allergy Act siddhartha Reason For Referral No Information Medications Medication [...] Problem Status W/U Status Risk Notes Problem Unsteady gait (52957977) Unsteady gait (R26.81) Active confirmed Problem Localized, primary osteoarthritis of the ankle and/or foot (267179465) Osteoarthritis of right ankle and foot (M19.071) Active confirmed Problem Reduction deformity of lower limb (09452660) 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 Problem Reduction deformity of lower limb (45689255) 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 Plan Of Treatment Pending Test Test Name Order Date X ray : Foot, right 3V 10/03/2018 X ray : Ankle, right 3V 10/03/2018 Insurance Providers Payer Name Payer Address Payer Phone Subscriber Number Group Number Insured Name Patient Relationship to Insured Coverage Start Date Coverage End Date Blue[employer] 65 Medicare Preferred [address] [place] [address] [id number] 5 Rocio Roland Self - patient is the insured 4 Medical (General) History Medical History History ICD Code Broken bones Hepatitis A Reflux ( GERD) Measles Chicken pox Joint implants/screws Surgical History Surgery Date(Month/Year) knee surgery 05/10/2018 Hardware removal from right knee 9
--- OUTSIDE RECORDS SUMMARY | 2024-12-18 07:19 | XMS_ITS | Encounter Summary ---
Author Organization [facility] [place] Address [address] [facility] [address] [place] [address] Phone Care Team Providers Care Key Account Director Name Role Phone Levar Pritchard NP Primary Care Provider [phone] Encounter Details Date Type Department Care Team (Late Contact Info) Description 06/26/2020 Orders Only [facility] [address] [facility] [address] [place] [phone] Yair Quintana MD Essential hypertension Social History [...] Visit [facility] [address] [facility] [address] [place] [address] Teddy Angulo MD [address] [facility] [address] [place] [address] documented as of this encounter Procedures Procedure Name Priority Date/Time Associated Diagnosis Comments RENAL FUNCTION PANEL Routine 06/17/2020 7:51 AM EDT Essential hypertension documented in this encounter Results * Renal function panel (06/17/2020 7:51 AM EDT) Pathologist [facility] Glucose 93 (70-99) MG/DL [facility] BUN 18 (8-23) MG/DL [facility] Creatinine 0.9 (0.5-1.0) MG/DL [facility] Sodium 141 (133-145) MMOL/L [facility] Potassium 4.6 (3.6-5.2) MMOL/L [facility] Chloride 104 (98-107) MMOL/L [facility] Bicarbonate (CO2) 27 (22-29) MMOL/L [facility] Anion Gap 10 (4-17) [facility] Albumin 4.6 (3.4-4.8) GM/DL [facility] Calcium 10.2 (8.6-10.5) MG/DL [facility] Phosphorus, Serum 3.6 (2.5-4.5) MG/DL [facility] Est GFR Non 65 ML/MIN/1.7 3 M2 [facility] Comment: Creatinine based estimated glomerular filtration rate (eGFR) is calculated using the Chronic Kidney Disease Epidemiology Collaboration (CKD-EPI). The CKD-EPI creatinine equation has not been validated in children (<18 years), women or in some racial or ethnic subgroups other than Caucasians and Americans. EST GFR 75 ML/MIN/1.7 3 M2 [facility] Comment: Creatinine based estimated glomerular filtration rate (eGFR) is calculated using the Chronic Kidney Disease Epidemiology Collaboration (CKD-EPI). The CKD-EPI creatinine equation has not been validated in children (<18 years), women or in some racial or ethnic subgroups other than Caucasians and Americans. Testing performed or reported by [facility], a Service of [facility], [address] [place] [id number] Negar Ledezma MD, Telecommunicator Supervisor Blood specimen (specimen) Venous blood / Unknown 06/17/2020 7:51 AM EDT 06/17/2020 8:03 AM EDT us Yair Quintana MD LAB BLOOD ORDERABLES Final Resul t [facility] documented in this encounter Visit Diagnoses Diagnosis Essential hypertension documented in this encounter Care Teams Key Account Director Relationship Specialty Start Date End Date Levar Pritchard NP [address] [place] [address] PCP - General Nurse Practitioner 11/23/21 documented as of this encounter
--- OUTSIDE RECORDS SUMMARY | 2024-12-18 07:19 | XMS_ITS | Clinical Summary ---
Author Organization [facility] Address [address] [address] Phone Care Team Providers Care Index Editor Name Role Phone Levar Pritchard NP Primary Care Provider [phone] Allergies Active Allergy Reactions Criticality Noted Date [...] 10/08/2024 Refill [facility] [address] [phone] Teddy Angulo MD from Last 3 Months [...] Office Visit [facility] [address] [phone] Teddy Angulo MD [address] [phone] Health Maintenance Due Date Last Done Comments Influenza Vaccine (#1) 2024 2, 12/14/2010, 05/02/2009 Hepatitis B Vaccine Aged Out 04/26/2012, 10/27/2011, 09/27/2011 No longer eligible based on patient's age to complete this topic Pneumococcal Vaccine: 50+ Years Completed 12/09/2014, 10/05/2013 Pneumococcal Vaccine: Peds (0 to 5 Years) and At-Risk Patients (6 to 49 Years) Discontinued 12/09/2014, 10/05/2013 Insurance [facility] Care Teams Index Editor Relationship Specialty Start Date End Date Levar Pritchard NP [facility] [place] [address] PCP - General Nurse Practitioner 11/23/21
--- OUTSIDE RECORDS SUMMARY | 2024-12-18 07:19 | XMS_ITS | Encounter Summary ---
Author Organization [facility] [place] Address [address] [facility] 200 [place] [address] Phone Care Team Providers Care Certified Alcohol And Drug Counselor Name Role Phone Levar Pritchard NP Primary Care Provider [phone] Reason for Visit * Reason Comments Med Refill Encounter Details Date Type Department Care Team (Late st Contact Info) Description 12/25/2022 Refill [facility] [address] [facility] [address] [place] [address] Yair Quintana MD Social History [...] and [facility] the [facility] [address] [phone] Teddy Angulo MD [address] [address] documented as of this encounter Visit Diagnoses Not on filedocumented in this encounter Care Teams Certified Alcohol And Drug Counselor Relationship Specialty Start Date End Date Levar Pritchard NP [place] [address] PCP - General Nurse Practitioner 11/23/21 documented as of this encounter
[2024-12-18 07:25] VITALS: BP 128/70; PULSE 91; RESP 16; TEMP 36.5; O2SAT 96; BMI 30.3
--- NOTE | 2024-12-18 07:25 | AM.OFFWIN_ITS ---
Intake Vital Signs 12/18/24 07:25 Height 4 ft 10 in Weight 145 lb BMI 30.3 BP 128/70 Blood Pressure Location Lt brachial Position Sitting Respiration 16 Pulse 91 Pulse Source Pulse Oximeter Temp 97.7 F Temp Source Oral Pulse Oximetry (%) 96 Oxygen Delivery Method Room Air Intake Visit Reasons: EP Pain in RT side/hip Intake Note: Pt is here today c/o Rt hip pain down to leg: no injury noted [id number] Patient Tobacco Use Status: Never used Tobacco Allergies ciprofloxacin (From CIPRO) Allergy (Intermediate, Verified 12/18/24 07:30) JOINT PAIN codeine (CODEINE) Allergy (Mild, Verified 12/18/24 07:30) LOOPY Penicillins Allergy (Mild, Verified 12/18/24 07:30) RASH penicillin G Allergy (Unknown, Verified 12/18/24 07:30) Unknown HPI HPI Comments History of Present Illness Details History - The patient is a 74-year-old female pr esenting with pain in the right hip and side, radiating to the right leg and right lower back. - The pain began 12 days ago, radiating down the right leg to the middle of the back, described as numbness with a history of burning sensation. - Exacerbated by sitting, relieved by ly ing down, with no relief from heat, cold, or Advil. - Recent six-hour drive to [place] may have contributed to symptoms. - Liver condition contraindicates Tyleno l use. - She denies trauma or falls. - She denies dysuria, hematuria, CP, SOB , abd pain, saddle anesthesia, numbness, tingling, or incontinence. Physical Exam General: cooperative, healthy appearing and comfortable, patient oriented x3 Head: Normal to inspection, normocephalic/atraumatic Effort & Inspection: Normal respiratory effort and able to speak in complete sentences. Cardiac: RRR, no M/R/G noted. Normal S1 and S2. Respiratory: Clear to auscultation bilaterally. No w/r/r noted. Back/spine: No CVA tenderness bilaterally. Cervical, thoracic and lumbar spine normal to inspection. Cervical ROM normal, no midline spinous tenderness noted. Thoracic ROM normal, lumbar ROM normal. No midline vertebral spinous tenderness noted. No step offs noted. No TTP of the thoracic or lumbar paraspinous or paravertebral muscles. TTP of the right SI joint. DTR are 2+ on the lower extremities noted. Ambulates with a steady gait. Extremities: Straight leg raise test negative on right; Straight leg raise test negative on left; motor strength normal 5/5 bilaterally. Neuro: Sensation intact. Patient was informed and verbally consented to the use of an ambient scribe for clinic note documentation during this visit. [facility] Medical History Adrenal adenoma Surgical History Hx of right knee surgery Social History Housing: House Patient Tobacco Use Status: Never used Tobacco e-Cigarette/Vaping Use: Never Used Second Hand Smoke Exposure: No service: No Current occupational status: retired Current occupational exposures/hazards: No Cognitive needs: No Hearing needs: No Vision needs: Yes Review of Systems Const All systems reviewed & are unremarkable except as noted in HPI and below Physical Exam Vital Signs: Last Vital Signs Temp 97.7 F 12/18/24 07:25 Pulse 91 12/18/24 07:25 Resp 16 12/18/24 07:25 BP 128/70 12/18/24 07:25 Pulse Ox 96 12/18/24 07:25 Oxygen Delivery Method Room Air 12/18/24 07:25 BMI result Body Mass Index 30.3 Assessment & Plan Assessment & Plan (1) Right hip pain: Code(s): M25.551 - Pain in right hip Plan Most likely strain vs sciatica Plan - Initiate a five-day course of prednisone for inflammation reduction. - Prescribe a muscle relaxant for nighttime use to alleviate muscle tension. - Prescribe naproxen twice daily for pain, avoiding Tylenol due to liver condition. - activities as tolerated - if pain does not resolve, recommend PT - follow up with PCP Medications: New prednisone 40 mg (2 x 20 mg) PO DAILY 10 tabs 0RF 5 days cyclobenzaprine 5 mg PO Q8H PRN 20 tabs 0RF Muscle Spasm naproxen 500 mg PO Q12H PRN 20 tabs 0RF pain 7 days Coding Level of Care Code Est Pt Level 3 (30376) Diagnoses Right hip pain M25.551
== END 2024-12-18 07:55 | disposition home or self-care (01) ==
PROVIDERS: PCP Nurse Practitioner Family; Visit Provider Physician Assistant Medical
DX: M25.551 Pain in right hip (principal)

== ENCOUNTER 2025-01-21 06:41 | Outpatient (AMB) | payer MEDICARE, SELFPAY ==
--- OUTSIDE RECORDS SUMMARY | 2025-01-21 06:44 | XMS_ITS | Encounter Summary ---
Author Organization [facility] Address [address] [facility] [address] [place] [address] Phone Care Team Providers Care Deck Steward Name Role Phone Levar Pritchard NP Primary Care Provider [phone] Encounter Details Date Type Department Care Team (Late st Contact Info) Description 07/17/2021 Documentation Only [facility] [address] [facility] [address] [place] [address] Yair Quintana MD Social History [...] Care Team (Late st Contact Info) Description 01/13/2026 1:30 PM EST Office Visit [facility] [address] [facility] [address] [place] [phone] Teddy Angulo MD [address] [facility] [address] [place] [phone] documented as of this encounter Visit Diagnoses Not on filedocumented in this encounter Care Teams Deck Steward Relationship Specialty Start Date End Date Levar Pritchard NP [address] [place] [address] PCP - General Nurse Practitioner 11/23/21 documented as of this encounter
--- OUTSIDE RECORDS SUMMARY | 2025-01-21 06:44 | XMS_ITS | Patient Health Record ---
Author Organization [facility] Address [address] [facility] [place] [address] Care Team Providers Care Technology Support Analyst Name Role Phone Jesse Bryant MD Primary Care Provider Mikala Danielson Unavailable [phone] Allergies Allergen (clinical drug ingredient) Drug/Non Drug [...] W/U Status Risk Notes Problem Unsteady gait (53563359) Unsteady gait (R26.81) Active confirmed Problem Localized, primary osteoarthritis of the ankle and/or foot (448610584) Osteoarthritis of right ankle and foot (M19.071) Active confirmed Problem Reduction deformity of lower limb (48553191) 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 Problem Reduction deformity of lower limb (69567959) 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 Plan Of Treatment Pending Test Test Name Order Date X ray : Foot, right 3V 10/03/2018 X ray : Ankle, right 3V 10/03/2018 Insurance Providers Payer Name Payer Address Payer Phone Subscriber Number Group Number Insured Name Patient Relationship to Insured Coverage Start Date Coverage End Date [employer] 65 Medicare Preferred [address] [place] [address] [id number] Rocio Roland Self - patient is the insured 4 Medical (General) History Medical History History ICD Code Broken bones Hepatitis A Reflux ( GERD) Measles Chicken pox Joint implants/screws Surgical History Surgery Date(Month/Year) knee surgery 05/10/2018 Hardware removal from right knee 9
--- OUTSIDE RECORDS SUMMARY | 2025-01-21 06:44 | XMS_ITS | Clinical Summary ---
Author Organization [facility] Address [address] [address] Phone Care Team Providers Care Bale Tie Machine Operator Name Role Phone Levar Pritchard NP Primary Care Provider [phone] Allergies Active Allergy Reactions Criticality Noted Date [...] by mouth 1 (one) time each day 1 Active loratadine (CLARITIN) 10 MG tablet Take 1 tablet by mouth 1 (one) time each day Active rosuvastatin (CRESTOR) 10 MG tablet Take 1 tablet by mouth 1 (one) time each day 2 Active losartan (COZAAR) 25 MG tablet Take 1 tablet (25 mg total) by mouth 1 (one) time each day 90 tablet 3 5 Active losartan (COZAAR) 25 MG tablet TAKE 1 TABLET BY MOUTH 1 TIME EACH DAY. 90 tablet 3 5 01/15/20 25 Discontinu ed(Reorder (does not appear on AVS)) Active Problems Problem Noted Date Diagnosed Date [...] Encounters Date Type Department Care Team Description 01/14/2025 1:45 PM EST Office Visit [facility] [address] [facility] [address] [place] [address] Teddy Angulo MD Hypertension (Primary Dx) from Last 3 Months Immunizations Immunization Administration [...] Sign Reading Time Taken Comments Blood Pressure 132/71 01/14/2025 1:32 PM EST Pulse 102 01/14/2025 1:32 PM EST Temperature - - Respiratory Rate - - Oxygen Saturation 98% 01/13/2023 1:49 PM EDT Inhaled Oxygen Concentration - - Weight 66.2 kg (146 lb) 01/14/2025 1:32 PM EST Height - - Body Mass Index - - Plan of Treatment Upcoming Encounters Date Type Department Care Team (Late st Contact Info) Description 01/13/2026 1:30 PM EST Office Visit [facility] [address] [facility] [address] [place] [address] Teddy Angulo MD [address] [facility] [address] [place] [address] Health Maintenance Due Date Last Done Comments Influenza Vaccine (#1) 2024 2, 12/14/2010, 05/02/2009 Hepatitis B Vaccine Aged Out 04/26/2012, 10/27/2011, 09/27/2011 No longer eligible based on patient's age to complete this topic Pneumococcal Vaccine: 50+ Years Completed 12/09/2014, 10/05/2013 Pneumococcal Vaccine: Peds (0 to 5 Years) and At-Risk Patients (6 to 49 Years) Discontinued 12/09/2014, 10/05/2013 Procedures Procedure Name Priority Date/Time Associated Diagnosis Comments URINE ALBUMIN / CREATININE RATIO Routine 01/08/2025 8:32 AM EDT RENAL FUNCTION PANEL Routine 01/08/2025 8:32 AM EDT from Last 3 Months Results * Urine Albumin / Creatinine Ratio (01/08/2025 8:32 AM EDT) Creatinine, Ur 81.8 Not Estab. mg/dL [facility] Albumin, Urine <3.0 Not Estab. ug/mL [facility] Albumin/Creatin ine Ratio <4 0 - 29 mg/g creat [facility] Comment: Normal: 0 - 29 Moderately increased: 30 - 300 Severely increased: >300 01/08/2025 8:32 AM EDT 01/08/2025 us Teddy Angulo MD LAB URINE ORDERABLES Final Resul t [facility] [address] [place] [phone] * (ABNORMAL) Renal Function Panel (01/08/2025 8:32 AM EDT) Glucose 98 70 - 99 mg/dL [facility] BUN 16 8 - 27 mg/dL [facility] Creatinine 0.92 0.57 - 1.00 mg/dL [facility] eGFR CKD-EPI CR 2020 65 >59 mL/min/1.7 3 [facility] BUN/Creatinine Ratio 17 12 - 28 [facility] Sodium 141 134 - 144 mmol/L [facility] Potassium 5.0 3.5 - 5.2 mmol/L [facility] Chloride 103 96 - 106 mmol/L [facility] Bicarbonate (CO2) 24 20 - 29 mmol/L [facility] Calcium 10.1 8.7 - 10.3 mg/dL [facility] Albumin 4.5 3.8 - 4.8 g/dL [facility] Phosphorus 2.8(L) 3.0 - 4.3 mg/dL [facility] 01/08/2025 8:32 AM EDT 01/08/2025 Teddy Angulo MD LAB BLOOD ORDERABLES Final Resul t [facility] [address] [place] [address] from Last 3 Months Insurance [facility] Care Teams Bale Tie Machine Operator Relationship Specialty Start Date End Date Levar Pritchard NP [address] [place], [place] [phone] PCP - General Nurse Practitioner 11/23/21
--- OUTSIDE RECORDS SUMMARY | 2025-01-21 06:44 | XMS_ITS | Encounter Summary ---
Author Organization [facility] Address [address] [facility] [address] [place] [address] Phone Care Team Providers Care Medication Care Manager Name Role Phone Levar Pritchard NP Primary Care Provider [phone] Encounter Details Date Type Department Care Team (Late Contact Info) Description 06/26/2020 Orders Only [facility] [address] [facility] [address] [place] [phone] Yair Quintana MD Essential hypertension Social History [...] Visit [facility] [address] [facility] [address] [place] [address] Teddy Angulo MD [address] [facility] [address] [place] [address] documented as of this encounter Procedures Procedure Name Priority Date/Time Associated Diagnosis Comments RENAL FUNCTION PANEL Routine 06/17/2020 7:51 AM EDT Essential hypertension documented in this encounter Results * Renal function panel (06/17/2020 7:51 AM EDT) Pathologist [facility] Glucose 93 (70-99) MG/DL [facility] BUN 18 (8-23) MG/DL [facility] Creatinine 0.9 (0.5-1.0) MG/DL [facility] Sodium 141 (133-145) MMOL/L [facility] Potassium 4.6 (3.6-5.2) MMOL/L [facility] Chloride 104 (98-107) MMOL/L [facility] Bicarbonate (CO2) 27 (22-29) MMOL/L [facility] Anion Gap 10 (4-17) [facility] Albumin 4.6 (3.4-4.8) GM/DL [facility] Calcium 10.2 (8.6-10.5) MG/DL [facility] Phosphorus, Serum 3.6 (2.5-4.5) MG/DL [facility] Est GFR Non 65 ML/MIN/1.7 3 M2 [facility] Comment: Creatinine based estimated glomerular filtration rate (eGFR) is calculated using the Chronic Kidney Disease Epidemiology Collaboration (CKD-EPI). The CKD-EPI creatinine equation has not been validated in children (<18 years), women or in some racial or ethnic subgroups other than Caucasians and Americans. EST GFR 75 ML/MIN/1.7 3 M2 [facility] Comment: Creatinine based estimated glomerular filtration rate (eGFR) is calculated using the Chronic Kidney Disease Epidemiology Collaboration (CKD-EPI). The CKD-EPI creatinine equation has not been validated in children (<18 years), women or in some racial or ethnic subgroups other than Caucasians and Americans. Testing performed or reported by [facility], a Service of [facility], [address] [place] [id number] Negar Ledezma MD, Sheriff Deputy Blood specimen (specimen) Venous blood / Unknown 06/17/2020 7:51 AM EDT 06/17/2020 8:03 AM EDT us Yair Quintana MD LAB BLOOD ORDERABLES Final Resul t [facility] documented in this encounter Visit Diagnoses Diagnosis Essential hypertension documented in this encounter Care Teams Medication Care Manager Relationship Specialty Start Date End Date Levar Pritchard NP [address] [place] [address] PCP - General Nurse Practitioner 11/23/21 documented as of this encounter
--- OUTSIDE RECORDS SUMMARY | 2025-01-21 06:44 | XMS_ITS | Encounter Summary ---
Author Organization [facility] Address [address] [facility] [address] [place] [address] Phone Care Team Providers Care Vice President Quality Name Role Phone Levar Pritchard NP Primary Care Provider [phone] Reason for Visit * Reason Comments Med Refill Encounter Details Date Type Department Care Team (Late st Contact Info) Description 12/25/2022 Refill [facility] [address] [facility] [address] [place] [address] Yair Quintana MD Social History [...] Visit [facility] [address] [phone] Teddy Angulo MD [address] [address] documented as of this encounter Visit Diagnoses Not on filedocumented in this encounter Care Teams Vice President Quality Relationship Specialty Start Date End Date Levar Pritchard NP [facility] [place] [address] PCP - General Nurse Practitioner 11/23/21 documented as of this encounter
--- OUTSIDE RECORDS SUMMARY | 2025-01-21 06:44 | XMS_ITS | Encounter Summary ---
Author Organization [facility] Address [address] [facility] [address] [place] [address] Phone Care Team Providers Care Gluing Machine Operator Electronic Name Role Phone Levar Pritchard NP Primary Care Provider [phone] Encounter Details Date Type Department Care Team (Late st Contact Info) Description 07/10/2021 Documentation Only [facility] [address] [facility] [address] [place] [address] Yair Quintana MD Social History [...] Visit [facility] [address] [facility] [address] [place] [phone] Teddy Angulo MD [address] [facility] [address] [place] [phone] documented as of this encounter Visit Diagnoses Not on filedocumented in this encounter Care Teams Gluing Machine Operator Electronic Relationship Specialty Start Date End Date Levar Pritchard NP [address] [place] [address] PCP - General Nurse Practitioner 11/23/21 documented as of this encounter
--- NOTE | 2025-01-21 07:27 | MHC.PC.OV ---
Intake Visit Reasons: f/u pain Allergies ciprofloxacin (From CIPRO) Allergy (Intermediate, Verified 01/21/25 07:31) JOINT PAIN codeine (CODEINE) Allergy (Mild, Verified 01/21/25 07:31) LOOPY Penicillins Allergy (Mild, Verified 01/21/25 07:31) RASH penicillin G Allergy (Unknown, Verified 01/21/25 07:31) Unknown Medication List - Last Reconciled 01/21/25 by Levar Pritchard, [facility] albuterol sulfate 90 mcg/actuation 2 puffs inhalation Q6H PRN alum-mag hydroxide-simeth 200-200-20 mg/5 mL (Maalox Advanced) 10 mL PO QID PRN cholecalciferol (vitamin D3) 50 mcg PO DAILY 90 days fluticasone propionate 50 mcg/actuation (Flonase Allergy Relief) 1 spray intranasal DAILY PRN ibandronate 150 mg PO .Q month 90 days loratadine (Claritin) 10 mg PO DAILY losartan 25 mg PO DAILY rosuvastatin 10 mg PO DAILY 90 days Tobacco use date assessed: 05/16/24 Dental Screening Dental Screen Date: 05/16/24 HPI f/u pain HPI Details History of Present Illness The patient is a 74 year old female presenting for a follow-up visit for ongoing right hip pain. The pain has been present for nearly a year and has been worsening, becoming more sharp, and is located on the lateral and anterior aspect of her hip. She also describes associated lower back pain and radicular symptoms down her right lower extremity. Past treatments include courses of anti-inflammatory medications, including prednisone, and muscle relaxers, which did not provide significant relief. She has also tried physical therapy in the past without success. A previous hip x-ray in October showed mild osteoarthritis. The patient reported that she experienced some relief from her hip pain yesterday for the first time. Review of Systems - Musculoskeletal: Reports worsening, sharp right hip pain on the lateral and anterior aspect, as well as lower back pain. - Neurological: Reports radicular symptoms down the right lower extremity. Plan 1. Right Hip Pain The patient presents with chronic, worsening right hip pain with features suggestive of ? both hip bursitis and a lumbar spine issue, given the associated radicular symptoms and lower back pain. Previous conservative measures including anti-inflammatories, muscle relaxers, and physical therapy have failed to provide relief. A repeat x-ray of the right hip and a new x-ray of the lumbar spine will be ordered to further evaluate. A referral will be placed for an orthopedic evaluation. 2. Low Back Pain The patient reports lower back pain in conjunction with her hip and leg symptoms. To investigate a possible lumbar etiology for her symptoms, a lumbar spine x-ray will be obtained. Discussion Notes I discussed with the patient the ongoing nature of her right hip pain, which has been present for close to a year and is worsening. I explained that her symptoms, including pain on the side of her hip and symptoms radiating down her leg, along with her lower back pain, suggest we need to investigate beyond the known mild osteoarthritis. I informed her that the plan is to obtain new x-rays of her hip and her lumbar spine. I also advised a referral to an developmental specialist for further evaluation and management, and we will continue to monitor her progress. Patient Instructions - Please make an appointment to get updated x-rays of your right hip and an x-ray of your lower back this week. - My office will send a referral for you to see an developmental specialist for your hip pain. - We will continue to track your progress. [facility] Medical History Adrenal adenoma Surgical History Hx of right knee surgery Social History Housing: House Patient Tobacco Use Status: Never used Tobacco e-Cigarette/Vaping Use: Never Used Second Hand Smoke Exposure: No service: No Current occupational status: retired Current occupational exposures/hazards: No Cognitive needs: No Hearing needs: No Vision needs: Yes Questionnaire Thrive Questionnaire Date Thrive assessed: 05/16/24 I am a: Patient What is your living situation today?: I have a steady place to live Within the past 12 months, did the food you bought not last and you didn't have the money to get more?: I choose not to answer this question Within the past 12 months, did you worry whether your food would run out before you got money to buy more?: I choose not to answer this question Do you have trouble paying for medicines?: I choose not to answer this question Do you have trouble getting transportation to medical appointments?: I choose not to answer this question Do you have trouble paying your heating and electricity bill?: I choose not to answer this question Do you have trouble taking care of your child, family member or friend?: I choose not to answer this question Do you have trouble with day-to-day activities such as bathing, preparing meals, shopping, managing finances, etc.?: I choose not to answer this question Are you currently unemployed and looking for a job?: I choose not to answer this question Are you interested in more education?: I choose not to answer this question Please select the resources that you would like help with: None THRIVE Score: 0 JAHAIRA-7 AMB Questionnaire JAHAIRA-7 Date JAHAIRA - 7 assessed: 05/16/23 Source: Developed by Drs. Pete Gomez, Yolette Beltran, Jah Tapia and colleagues, with an educational pilar from [employer]. Physical exam (Primary Care) Tobacco/Smoking Status: Tobacco use Status Tobacco use date assessed 05/16/24 05/16/24 07:57 Patient Tobacco Use Status Never used Tobacco 12/18/24 07:30 e-Cigarette/Vaping Use Never Used 05/16/24 07:57 Thrive Assessment: Date of Thrive Assessment Date Thrive assessed 05/16/24 05/16/24 07:57 Telehealth Telehealth Telehealth Platform: [facility] Location of provider rendering services: practice address Location of patient: address on file Patient Identification confirmed using: Name, : Yes Telehealth method: video Patient verbally consented to treatment: Yes Patient verbally consented to billing insurance company: Yes Patient informed of any privacy concerns related to visit: Yes Minutes spent on Phone/Video with Pt.: 12 Coding Level of Care Code Tele Est Pt Level 3 (68874) Diagnoses Right hip pain M25.551 Lower back pain M54.50 Assessment & Plan Assessment & Plan (1) Right hip pain: Code(s): M25.551 - Pain in right hip Category: Medical (2) Lower back pain: Code(s): M54.50 - Low back pain, unspecified Category: Medical Plan . Orders: Orders XR hip RT min 2V Today M25.551 - Pain in right hip XR lumbar spine 2-3V Today M54.50 - Low back pain, unspecified Referrals Orthopedics Referral M25.551 - Pain in right hip
== END 2025-01-21 10:11 | disposition home or self-care (01) ==
LOC: HO.HMCC 06:42
PROVIDERS: PCP Nurse Practitioner Family; Visit Provider Nurse Practitioner Family
DX: M25.551 Pain in right hip (principal); M54.50 Low back pain, unspecified

== ENCOUNTER 2025-01-22 09:06 | Outpatient (REF) | payer MEDICARE, SELFPAY ==
--- NOTE | ~2025-01-22 | XR_ITS ---
EXAMINATION: XR LUMBOSACRAL SPINE CLINICAL INFORMATION: M54.50 - Low back pain, unspecified COMPARISON: X-rays 10/04/2023 TECHNIQUE: Three views of the lumbosacral spine. FINDINGS: 5 lumbar type vertebral bodies. Grade 1 anterolisthesis of L3 on L4, stable. Multilevel disc degeneration, more prominent findings of severe disc degeneration at L4-5, mild-moderate disc degeneration at L5-S1. Multilevel facet degeneration. No evidence of acute fracture or suspicious bony lesion. Bilateral SI joints are symmetric. No suspicious soft tissue calcifications. XR/XR lumbar spine 2-3V IMPRESSION: Lumbar spondylosis. Severe L4-5 disc degeneration. Electronically signed by: Bronson Jensen MD 01/22/2025 01:32 PM [facility]
--- NOTE | ~2025-01-22 | XR_ITS ---
EXAMINATION: XR HIP, RIGHT CLINICAL INFORMATION: M25.551 - Pain in right hip COMPARISON: X-ray 11/03/2023 TECHNIQUE: Two views of the right hip. FINDINGS: Mild right hip osteoarthritis. No visible acute fracture, dislocation or suspicious bony lesion. Right SI joint appears unremarkable. Minimal symphysis pubis degeneration. Mild enthesopathic spurring of the right iliac crest. No abnormal soft tissue calcification. XR/XR hip RT min 2V IMPRESSION: Mild right hip osteoarthritis. Electronically signed by: Bronson Jensen MD 01/22/2025 01:06 PM [facility]
--- OUTSIDE RECORDS SUMMARY | 2025-01-22 09:47 | XMS_ITS | Encounter Summary ---
Author Organization [facility] Address [address] [facility] [address] [place] [address] Phone Care Team Providers Care Drafter Detail Name Role Phone Levar Pritchard NP Primary Care Provider [phone] Encounter Details Date Type Department Care Team (Late Contact Info) Description 06/26/2020 Orders Only [facility] [address] [facility] [address] [place] [phone] Yair Quintana MD Essential hypertension Social History [...] AM EDT documented as of this encounter Functional Status documented as of this encounter Plan of Treatment Upcoming Encounters Date Type Department Care Team (Late st Contact Info) Description 01/13/2026 1:30 PM EST Office Visit [facility] [address] [facility] [address] [place] [address] Teddy Angulo MD [address] [facility] [address] [place] [address] documented as of this encounter Procedures Procedure Name Priority Date/Time Associated Diagnosis Comments RENAL FUNCTION PANEL Routine 06/17/2020 7:51 AM EDT Essential hypertension documented in this encounter Results * Renal function panel (06/17/2020 7:51 AM EDT) Glucose 93 (70-99) MG/DL [facility] BUN 18 (8-23) MG/DL [facility] Creatinine 0.9 (0.5-1.0) MG/DL [facility] Sodium 141 (133-145) MMOL/L [facility] Potassium 4.6 (3.6-5.2) MMOL/L [facility] Chloride 104 (98-107) MMOL/L [facility] Bicarbonate (CO2) 27 (22-29) MMOL/L [facility] Anion Gap 10 (4-17) [facility] Albumin 4.6 (3.4-4.8) GM/DL [facility] Calcium 10.2 (8.6-10.5) MG/DL [facility] Phosphorus, Serum 3.6 (2.5-4.5) MG/DL [facility] Est GFR Non 65 ML/MIN/1.7 3 M2 [facility] Comment: Creatinine based estimated glomerular filtration rate (eGFR) is calculated using the Chronic Kidney Disease Epidemiology Collaboration (CKD-EPI). The CKD-EPI creatinine equation has not been validated in children (<18 years), women or in some racial or ethnic subgroups other than Caucasians and Americans. EST GFR 75 ML/MIN/1.7 3 M2 [facility] Comment: Creatinine based estimated glomerular filtration rate (eGFR) is calculated using the Chronic Kidney Disease Epidemiology Collaboration (CKD-EPI). The CKD-EPI creatinine equation has not been validated in children (<18 years), women or in some racial or ethnic subgroups other than Caucasians and Americans. Testing performed or reported by [facility], a Service of [facility], [address] [place] [id number] Negar Ledezma MD, [employer] Architect Blood specimen (specimen) Venous blood / Unknown 06/17/2020 7:51 AM EDT 06/17/2020 8:03 AM EDT us Yair Quintana MD LAB BLOOD ORDERABLES Final Resul t [facility] documented in this encounter Visit Diagnoses Diagnosis Essential hypertension documented in this encounter Care Teams Drafter Detail Relationship Specialty Start Date End Date Levar Pritchard NP [address] [place] [id number] PCP - General Nurse Practitioner 11/23/21 documented as of this encounter
--- OUTSIDE RECORDS SUMMARY | 2025-01-22 09:47 | XMS_ITS | Patient Health Record ---
Author Organization [facility] Address [address] [place] [address] Care Team Providers Care Distribution Clerk Name Role Phone Jesse Bryant MD Primary Care Provider Mikala Danielson Unavailable [phone] Allergies Allergen (clinical drug ingredient) Drug/Non Drug [...] W/U Status Risk Notes Problem Unsteady gait (25792216) Unsteady gait (R26.81) Active confirmed Problem Localized, primary osteoarthritis of the ankle and/or foot (739131736) Osteoarthritis of right ankle and foot (M19.071) Active confirmed Problem Reduction deformity of lower limb (46676689) 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 Problem Reduction deformity of lower limb (14497136) 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 Plan Of Treatment Pending Test Test Name Order Date X ray : Foot, right 3V 10/03/2018 X ray : Ankle, right 3V 10/03/2018 Insurance Providers Payer Name Payer Address Payer Phone Subscriber Number Group Number Insured Name Patient Relationship to Insured Coverage Start Date Coverage End Date Blue[employer] 65 Medicare Preferred [address] [place] [address] [id number] 5 Rocio Roland Self - patient is the insured 4 Medical (General) History Medical History History ICD Code Broken bones Hepatitis A Reflux ( GERD) Measles Chicken pox Joint implants/screws Surgical History Surgery Date(Month/Year) knee surgery 05/10/2018 Hardware removal from right knee 9
--- OUTSIDE RECORDS SUMMARY | 2025-01-22 09:47 | XMS_ITS | Encounter Summary ---
Author Organization [facility] Address [address] [facility] [address] [place] [address] Phone Care Team Providers Care Ornamental Metal Worker Apprentice Name Role Phone Levar Pritchard NP Primary Care Provider [phone] Encounter Details Date Type Department Care Team (Late st Contact Info) Description 07/17/2021 Documentation Only [facility] [address] [facility] [address] [place] [address] Yair Quintana MD Social History [...] Visit [facility] [address] [facility] [address] [place] [phone] Teddy Angulo MD [address] [facility] [address] [place] [phone] documented as of this encounter Visit Diagnoses Not on filedocumented in this encounter Care Teams Ornamental Metal Worker Apprentice Relationship Specialty Start Date End Date Levar Pritchard NP [address] [place] [address] PCP - General Nurse Practitioner 11/23/21 documented as of this encounter
--- OUTSIDE RECORDS SUMMARY | 2025-01-22 09:47 | XMS_ITS | Encounter Summary ---
Author Organization [facility] Address [address] [facility] [address] [place] [address] Phone Care Team Providers Care Grease Maker Head Name Role Phone Levar Pritchard NP Primary Care Provider [phone] Encounter Details Date Type Department Care Team (Late st Contact Info) Description 07/10/2021 Documentation Only [facility] [address] [facility] [address] [place] [address] Yair Quintana MD Social History [...] Visit [facility] [address] [facility] [address] [place] [phone] Teddy Angulo MD [address] [facility] [address] [place] [phone] documented as of this encounter Visit Diagnoses Not on filedocumented in this encounter Care Teams Grease Maker Head Relationship Specialty Start Date End Date Levar Pritchard NP [address] [place] [address] PCP - General Nurse Practitioner 11/23/21 documented as of this encounter
--- OUTSIDE RECORDS SUMMARY | 2025-01-22 09:47 | XMS_ITS | Clinical Summary ---
Author Organization [facility] Address [address] [address] Phone Care Team Providers Care Senior Group Manager Name Role Phone Levar Pritchard NP Primary Care Provider [phone] Allergies Active Allergy Reactions Criticality Noted Date [...] Office Visit [facility] [address] [facility] [address] [place] [address] Teddy Angulo MD Hypertension (Primary [...] Office Visit [facility] [address] [facility] [address] [place] [address] Teddy Angulo MD [address] [facility] [address] [place] [address] Health Maintenance Due Date Last [...] Creatinine, Ur 81.8 Not Estab. mg/dL [facility] Albumin, Urine <3.0 Not Estab. ug/mL [facility] Albumin/Creatin ine Ratio <4 0 - 29 mg/g creat [facility] Comment: Normal: 0 - 29 Moderately increased: 30 - 300 Severely increased: >300 01/08/2025 8:32 AM EDT 01/08/2025 us Teddy Angulo MD LAB URINE ORDERABLES Final Resul t [facility] [address] [place] [phone] * (ABNORMAL) Renal Function Panel (01/08/2025 8:32 AM EDT) Glucose 98 70 - 99 mg/dL [facility] BUN 16 8 - 27 mg/dL [facility] Creatinine 0.92 0.57 - 1.00 mg/dL [facility] eGFR CKD-EPI CR 2020 65 >59 mL/min/1.7 3 [facility] BUN/Creatinine Ratio 17 12 - 28 [facility] Sodium 141 134 - 144 mmol/L [facility] Potassium 5.0 3.5 - 5.2 mmol/L [facility] Chloride 103 96 - 106 mmol/L [facility] Bicarbonate (CO2) 24 20 - 29 mmol/L [facility] Calcium 10.1 8.7 - 10.3 mg/dL [facility] Albumin 4.5 3.8 - 4.8 g/dL [facility] Phosphorus 2.8(L) 3.0 - 4.3 mg/dL [facility] 01/08/2025 8:32 AM EDT 01/08/2025 Teddy Angulo MD LAB BLOOD ORDERABLES Final Resul t [facility] [address] [place] [address] from Last 3 Months Insurance [facility] Care Teams Senior Group Manager Relationship Specialty Start Date End Date Levar Pritchard NP [address] [place], [place] [phone] PCP - General Nurse Practitioner 11/23/21
--- OUTSIDE RECORDS SUMMARY | 2025-01-22 09:47 | XMS_ITS | Encounter Summary ---
Author Organization [facility] Address [address] [facility] [address] [place] [address] Phone Care Team Providers Care Chili Pepper Grinder Name Role Phone Levar Pritchard NP Primary Care Provider [phone] Reason for Visit * Reason Comments Med Refill Encounter Details Date Type Department Care Team (Late st Contact Info) Description 12/25/2022 Refill [facility] [address] [facility] [address] [place] [address] Yair Quintana MD Social History [...] the [facility] [address] [phone] Teddy Angulo MD [address] [address] documented as of this encounter Visit Diagnoses Not on filedocumented in this encounter Care Teams Chili Pepper Grinder Relationship Specialty Start Date End Date Levar Pritchard [place] [address] PCP - General Nurse Practitioner 11/23/21 documented as of this encounter
== END 2025-01-22 09:07 | disposition home or self-care (01) ==
LOC: HO.HMGCX 09:06
PROVIDERS: PCP Nurse Practitioner Family; Visit Provider Nurse Practitioner Family
DX: M25.551 Pain in right hip (principal); M54.50 Low back pain, unspecified
CPT/HCPCS: 72100; 73502

== ENCOUNTER → 2025-01-22 09:10 | Outpatient (BNV) | payer MEDICARE, SELFPAY | PROVIDERS: PCP Nurse Practitioner Family; Visit Provider Radiology Diagnostic Ultrasound | DX: M16.12 Unilateral primary osteoarthritis, left hip (principal); M51.360 Other intervertebral disc degeneration, lumbar region with discogenic back pain only; M47.816 Spondylosis without myelopathy or radiculopathy, lumbar region | CPT/HCPCS: 72100; 73502 ==